=== PATIENT | male | born 1960 | race Caucasian/White ===

== ENCOUNTER 2018-03-10 10:43 | Inpatient (IN) | payer OTHER ==
[2018-03-10 10:55] VITALS: BMI 24.6
--- NOTE | 2018-03-10 11:18 | HP ---
COWS - Scale Resting Pulse: 0= [place] 80 or Below Sweatin=Flushed/Facial Moisture Restless Observation: 3= Extraneous Movement Pupil Size: 2= Moderately Dilated Bone or Joint Aches: 2= Severe Diffuse Aches Runny Nose/ Eye Tearin= Runny Nose/Eyes GI Upset > 30mins: 3= Vomiting/Diarrhea Tremor Observation: 2= Slight Tremor Visible Yawning Observation: 1= 1-2x During Session Anxiety or Irritability: 2=Irritable/Anxious Goose Flesh Skin: 0=Smooth Skin COWS Score: 19 Admission ROS S - HPI Chief Complaint: i need help to stop using heroin and cocaine Allergies/Adverse Reactions: Allergies Allergy/AdvReac Type Severity Reaction Status Date / Time No Known Allergies Allergy Verified 03/10/18 11:07 History of Present Illness: this 58 years old male with heroin and cocaine dependence,seeking detox, withdrawal symptom,last detox 01/27 [facility] not completed weight loss hiv since 1990,no medications,no compliance weight loss nicotine dependence longest period of sobriety 10 years - Ebola screening Have you traveled outside of the country in the last 21 days: No Have you been sick,other than usual withdrawal symptoms: No - Review of Systems Constitutional: Chills, Diaphoresis, Loss of Appetite, Malaise, Night Sweats, Changes in sleep, Weakness, Unintentional Wgt. Loss EENT: reports: Tearing, Nose Congestion Respiratory: reports: No Symptoms reported Cardiac: reports: No Symptoms Reported GI: reports: Diarrhea, Nausea, Vomiting, Abdominal cramping : reports: No Symptoms Reported Musculoskeletal: reports: Back Pain, Joint Pain, Muscle Pain, Joint Stiffness Integumentary: reports: Dryness Neuro: reports: Headache, Tremors Endocrine: reports: No Symptoms Reported Hematology: reports: No Symptoms Reported (hiv) Psychiatric: reports: No Sypmtoms Reported, Judgement Intact, Mood/Affect Appropiate, Orientated x3 Patient History - Patient Medical History Hx Anemia: No Hx Asthma: No Hx Chronic Obstructive Pulmonary Disease (COPD): No Hx Cancer: No Hx Cardiac Disorders: No Hx Congestive Heart Failure: No Hx Hypertension: No Hx Hypercholesterolemia: No Hx Pacemaker: No HX Cerebrovascular Accident: No Hx Seizures: No Hx Dementia: No Hx Diabetes: No Hx Gastrointestinal Disorders: No Hx Liver Disease: No Hx Genitourinary Disorders: No Hx Sexually Transmitted Disorders: No Hx Renal Disease (ESRD): No Hx Thyroid Disease: No Hx Human Immunodeficiency Virus (HIV): Yes (since 1990 non compliance no medication) Hx Hepatitis C: No Hx Depression: No Hx Suicide Attempt: No Hx Bipolar Disorder: No Hx Schizophrenia: No - Patient Surgical History Past Surgical History: Yes - PPD History Previous Implant?: Yes Documented Results: Positive w/o proof Implanted On Prior [facility] Admission?: No PPD to be Administered?: No - Smoking Cessation Smoking history: Current every day smoker Have you smoked in the past 12 months: Yes Aproximately how many cigarettes per day: 20 Cigars Per Day: 0 Hx Chewing Tobacco Use: No Initiated information on smoking cessation: Yes 'Breaking Loose' booklet given: 03/10/18 - Substance & Tx. History Hx Alcohol Use: No Hx Substance Use: No Substance Use Type: Cocaine, Heroin Hx Substance Use Treatment: Yes ([facility] 01/27 not completed) - Substances Abused Heroin Route: Injection Frequency: Daily Amount used: 10 bags Age of first use: 13 Date of Last Use: 03/09/18 Cocaine Route: Injection Frequency: 1-2 times per week Amount used: 1 bag Age of first use: 13 Date of Last Use: 03/08/18 Family Disease History - Family Disease History Family History: Denies Admission Physical Exam S - Vital Signs Vital Signs: Vital Signs - 24 hr 03/10/18 10:47 Temperature 97.6 F Pulse Rate 51 L Respiratory 17 Rate Blood Pressure 104/69 - Physical General Appearance: Yes: Moderate Distress, Tremorous, Irritable, Sweating, Anxious HEENTM: Yes: Normal ENT Inspection, DONTAE, Pharynx Normal Respiratory: Yes: Lungs Clear, Normal Breath Sounds, No Respiratory Distress Neck: Yes: Supple, Trachea in good position, Thyroid tenderness Breast: Yes: Within Normal Limits Cardiology: Yes: Within Normal Limits, Regular Rhythm, Regular Rate, S1, S2 Abdominal: Yes: Within Normal Limits, Normal Bowel Sounds, Non Tender, Soft Genitourinary: Yes: Within Normal Limits Back: Yes: Muscle Spasm Musculoskeletal: Yes: full range of Motion, Back pain, Muscle Pain Extremities: Yes: Normal Range of Motion, Tremors Neurological: Yes: water manager II-XII NML intact, Fully Oriented, Alert, Motor Strength 5/5 Integumentary: Yes: Dry, Track Chandra Lymphatic: Yes: Within Normal Limits - Diagnostic (1) Opioid dependence with withdrawal Current Visit: Yes Status: Acute (2) Cocaine dependence Current Visit: Yes Status: Acute (3) HIV (human immunodeficiency virus infection) Current Visit: Yes Status: Acute (4) Weight loss Current Visit: Yes Status: Acute (5) Nicotine dependence Current Visit: Yes Status: Acute (6) IVDU (intravenous drug user) Current Visit: Yes Status: Acute Cleared for Admission S - Detox or Rehab [facility] Level of Care: Medically Managed Detox Regimen/Protocol: Methadone [facility] Breath Alcohol Content Breath Alcohol Content: 0 Urine Drug Screen - Results Drug Screen Negative: No Urine Drug Screen Results: HUGH-Cocaine, OPI-Opiates
[2018-03-10] MEDS ORDERED: MAGNESIUM HYDROX 2400MG/30ML ORAL SUSPENSION 30 ML CUP PO PRN (11:28)
[2018-03-10] MEDS ORDERED: hydrOXYzine PAMOATE 25 MG CAPSULE (FP) PO PRN (11:28)
[2018-03-10] MEDS ORDERED: MAG HYDROX/AL HYDROX/SIMETH 30 ML UNIT-DOSE CUP PO PRN (11:28)
[2018-03-10] MEDS ORDERED: MAGNESIUM CITRATE 300 ML BOTTLE PO PRN (11:28)
[2018-03-10] MEDS ORDERED: guaiFENesin/D-METHORPHAN HB 10 ML UNIT-DOSE CUPS PO PRN (11:28)
[2018-03-10] MEDS ORDERED: LOPERAMIDE HCL 2 MG CAPSULE PO PRN (11:28)
[2018-03-10] MEDS ORDERED: ACETAMINOPHEN 325 MG TABLET (FP) PO PRN (11:28)
[2018-03-10] MEDS ORDERED: P-EPHED 60MG/TRIPROLIDI 2.5MG TABLET PO PRN (11:28)
[2018-03-10] MEDS ORDERED: MENTHOL/PHENOL 1 EACH UD MM PRN (11:28)
[2018-03-10] MEDS ORDERED: CYCLOBENZAPRINE HCL 10 MG TABLET (FP) PO PRN (11:32)
[2018-03-10] MEDS ORDERED: METHADONE HCL 10 MG TABLET (FOR DETOX USE ONLY) PO ONE ×2 (12:00→23:00)
[2018-03-10] MEDS: cloNIDine HCL 0.1 MG TABLET PO SCH ×2 (13:35→22:38)
[2018-03-10] MEDS: diazePAM 5 MG TABLET PO PRN (13:35)
[2018-03-10] MEDS: NICOTINE 21 MG/24 HOURS TOPICAL PATCH TD SCH (13:37)
--- NOTE | 2018-03-10 15:03 | EKG ---
Test Reason : Blood Pressure : / mmHG Vent. Rate : 056 BPM Atrial Rate : 056 BPM P-R Int : 168 ms QRS Dur : 102 ms QT Int : 454 ms P-R-T Axes : 017 079 047 degrees QTc Int : 438 ms SINUS BRADYCARDIA OTHERWISE NORMAL ECG NO PREVIOUS ECGS AVAILABLE Confirmed by SRAVANI GOMES, CLARITA ([id number]) on 03/10/2018 3:03:07 PM Referred By: Confirmed By:CLARITA LASSITER MD
[2018-03-10 17:44] LABS: URINE APPEARANCE SLCLOUDY; URINE BILIRUBIN NEGATIVE (<2.0 mg/dL); URINE COLOR AMBER; URINE GLUCOSE (UA) NEGATIVE (NEGATIVE); URINE KETONE TRACE (NEGATIVE); URINE LEUK ESTERASE NEGATIVE (NEGATIVE); URINE NITRITE NEGATIVE (NEGATIVE); URINE UROBILINOGEN 4.0 E.U/dl mg/dL (0.2-1.0)
[2018-03-10 17:58] LABS: URINE PROTEIN 1+ (NEGATIVE)
[2018-03-10 18:21] LABS: URINE MUCUS MODERATE
[2018-03-10] MEDS ORDERED: MELATONIN 5 MG TABLETS PO PRN (22:00)
[2018-03-10] MEDS: THIAMINE HCL 100 MG TABLET (FP) PO SCH (22:38)
[2018-03-11] MEDS: diazePAM 5 MG TABLET PO PRN ×4 (02:13→22:12)
[2018-03-11] MEDS: IBUPROFEN 400 MG TABLET (FP) PO PRN (02:14)
[2018-03-11] MEDS ORDERED: PNEUMOC 13-VAL CONJ-DIP CRM/PF 0.5 ML DISP.SYRIN IM ONE ×2 (06:00→12:00)
[2018-03-11] MEDS: CYCLOBENZAPRINE HCL 5 MG TABLET PO PRN ×2 (06:38→10:39)
[2018-03-11] MEDS: PRENATAL VITAMINS W/ FOLIC ACID TABLET (FP) PO SCH (09:41)
[2018-03-11] MEDS ORDERED: METHADONE HCL 10 MG TABLET (FOR DETOX USE ONLY) PO ONE (10:00)
[2018-03-11 10:20] LABS: HEMOGLOBIN 12.9 GM/dL (11.7-16.9); MCH 30.7 pg (25.7-33.7); MCHC 33.1 g/dl (32.0-35.9); MEAN CELL VOLUME 92.6 fl (80-96); MEAN PLT VOLUME 8.6 fl (7.5-11.1); PLATELET COUNT 273 K/MM3 (134-434); RBC 4.21 M/mm3 (4.00-5.60); RDW 16.5 % (11.9-15.9); WHITE BLOOD COUNT 3.6 K/mm3 (4.0-10.0)
[2018-03-11] MEDS: cloNIDine HCL 0.1 MG TABLET PO SCH ×2 (10:37→22:13)
[2018-03-11] MEDS: NICOTINE 21 MG/24 HOURS TOPICAL PATCH TD SCH ×2 (10:49→14:05)
[2018-03-11 12:32] LABS: CHLORIDE 103 mmol/L (98-107); POTASSIUM 4.2 mmol/L (3.5-5.1); SODIUM 140 mmol/L (136-145)
[2018-03-11 13:00] LABS: ALBUMIN 3.4 g/dl (3.4-5.0); ALK PHOS 93 U/L (45-117); ANION GAP 10 MMOL/L (8-16); BILIRUBIN,TOTAL 0.5 mg/dL (0.2-1.0); BLOOD UREA NITROGEN 15 mg/dL (7-18); CALCIUM 9.1 mg/dL (8.5-10.1); CO2 27 mmol/L (21-32); CREATININE 0.9 mg/dL (0.7-1.3); GLUCOSE,RANDOM 96 mg/dL (74-106); SGOT/AST 42 U/L (15-37); SGPT/ALT 32 U/L (12-78); TOT PROT 8.8 g/dl (6.4-8.2)
--- NOTE | 2018-03-11 13:15 | PN ---
BHS COWS - Scale Resting Pulse: 0= [place] 80 or Below Sweatin= Chills/Flushing Restless Observation: 3= Extraneous Movement Pupil Size: 1= Pupils >than Normal Bone or Joint Aches: 2= Severe Diffuse Aches Runny Nose/ Eye Tearin= Runny Nose/Eyes GI Upset > 30mins: 2= Nausea/Diarrhea Tremor Observation of Outstretched Hands: 2= Slight Tremor Visible Yawning Observation: 1= 1-2x During Session Anxiety or Irritability: 2=Irritable/Anxious Goose Flesh Skin: 0=Smooth Skin COWS Score: 16 S Progress Note (SOAP) Subjective: alert,irritable,anxious,interrupted sleep,pain in the body and back,tremor, sweating Objective: 03/11/18 13:12 Vital Signs Temperature 96.6 F L 03/11/18 09:24 Pulse Rate 54 L 03/11/18 09:24 Respiratory Rate 20 03/11/18 09:24 Blood Pressure 101/59 03/11/18 09:24 O2 Sat by Pulse Oximetry (%) 03/11/18 13:13 ekg sinus bradycardia 56/min qt/qtc 454/438 no chest pain,no sob,no dizziness Laboratory Last Values WBC 3.6 K/mm3 (4.0-10.0) L 03/11/18 06:20 RBC 4.21 M/mm3 (4.00-5.60) 03/11/18 06:20 Hgb 12.9 GM/dL (11.7-16.9) 03/11/18 06:20 Hct 39.0 % (35.4-49) 03/11/18 06:20 MCV 92.6 fl (80-96) 03/11/18 06:20 MCH 30.7 pg (25.7-33.7) 03/11/18 06:20 MCHC 33.1 g/dl (32.0-35.9) 03/11/18 06:20 RDW 16.5 % (11.9-15.9) H 03/11/18 06:20 Plt Count 273 K/MM3 (134-434) 03/11/18 06:20 MPV 8.6 fl (7.5-11.1) 03/11/18 06:20 Sodium 140 mmol/L (136-145) 03/11/18 06:20 Potassium 4.2 mmol/L (3.5-5.1) 03/11/18 06:20 Chloride 103 mmol/L (98-107) 03/11/18 06:20 Carbon Dioxide 27 mmol/L (21-32) 03/11/18 06:20 Anion Gap 10 MMOL/L (8-16) 03/11/18 06:20 BUN 15 mg/dL (7-18) 03/11/18 06:20 Creatinine 0.9 mg/dL (0.7-1.3) 03/11/18 06:20 Creat Clearance w eGFR > 60 (>60) 03/11/18 06:20 Random Glucose 96 mg/dL (74-106) 03/11/18 06:20 Calcium 9.1 mg/dL (8.5-10.1) 03/11/18 06:20 Total Bilirubin 0.5 mg/dL (0.2-1.0) 03/11/18 06:20 AST 42 U/L (15-37) H 03/11/18 06:20 ALT 32 U/L (12-78) 03/11/18 06:20 Alkaline Phosphatase 93 U/L (45-117) 03/11/18 06:20 Total Protein 8.8 g/dl (6.4-8.2) H 03/11/18 06:20 Albumin 3.4 g/dl (3.4-5.0) 03/11/18 06:20 Urine Color Afshan 03/10/18 15:29 Urine Appearance Slcloudy 03/10/18 15:29 Urine pH 6.0 (5.0-8.0) 03/10/18 15:29 Ur Specific [place] 1.030 (1.001-1.035) 03/10/18 15:29 Urine Protein 1+ (NEGATIVE) H 03/10/18 15:29 Urine Glucose (UA) Negative (NEGATIVE) 03/10/18 15:29 Urine Ketones Trace (NEGATIVE) H 03/10/18 15:29 Urine Blood Negative (NEGATIVE) 03/10/18 15:29 Urine Nitrite Negative (NEGATIVE) 03/10/18 15:29 Urine Bilirubin Negative (<2.0 mg/dL) 03/10/18 15:29 Urine Urobilinogen 4.0 e.u/dl mg/dL (0.2-1.0) 03/10/18 15:29 Ur Leukocyte Esterase Negative (NEGATIVE) 03/10/18 15:29 Urine WBC (Auto) <1 /hpf (3-5) 03/10/18 15:29 Urine RBC (Auto) 26 /hpf (0-3) 03/10/18 15:29 Urine Mucus Moderate 03/10/18 15:29 RPR Titer Nonreactive (NONREACTIVE) 03/11/18 06:20 Assessment: 03/11/18 13:14 withdrawal symptom Plan: continue detox,repeat ua for microscopic hematuria
--- NOTE | 2018-03-11 17:51 | PN ---
[facility] Progress Note Note: Vital Signs Temperature 96.9 F L 03/11/18 13:21 Pulse Rate 72 03/11/18 13:21 Respiratory Rate 18 03/11/18 13:21 Blood Pressure 136/59 03/11/18 13:21 O2 Sat by Pulse Oximetry (%) Patient very agitated and belligerent, requested increase in schedule dose of 10 mg Librium. Patient made aware dose can not be adjusted and requested to speak with his counselor to attend another facility.
[2018-03-11] MEDS: VITAMINS A AND D TOPICAL OINTMENT 60 GM TUBE TP SCH (17:59)
[2018-03-11] MEDS ORDERED: hydrOXYzine PAMOATE 50 MG CAPSULE (FP) PO PRN (18:04)
[2018-03-11] MEDS: THIAMINE HCL 100 MG TABLET (FP) PO SCH (22:10)
[2018-03-12] MEDS: VITAMINS A AND D TOPICAL OINTMENT 60 GM TUBE TP SCH ×4 (03:53→16:59)
[2018-03-12] MEDS: diazePAM 5 MG TABLET PO PRN ×2 (05:11→22:34)
[2018-03-12] MEDS ORDERED: METHADONE HCL 5 MG TABLET (FOR DETOX USE ONLY) PO ONE (10:00)
[2018-03-12] MEDS: cloNIDine HCL 0.1 MG TABLET PO SCH (10:30)
[2018-03-12] MEDS: NICOTINE 21 MG/24 HOURS TOPICAL PATCH TD SCH (10:30)
[2018-03-12] MEDS: PRENATAL VITAMINS W/ FOLIC ACID TABLET (FP) PO SCH (10:30)
[2018-03-12] MEDS: IBUPROFEN 400 MG TABLET (FP) PO PRN (10:33)
[2018-03-12 11:27] LABS: URINE APPEARANCE CLOUDY; URINE BILIRUBIN NEGATIVE (<2.0 mg/dL); URINE COLOR YELLOW; URINE GLUCOSE (UA) NEGATIVE (NEGATIVE); URINE KETONE NEGATIVE (NEGATIVE); URINE LEUK ESTERASE NEGATIVE (NEGATIVE); URINE NITRITE NEGATIVE (NEGATIVE); URINE PROTEIN NEGATIVE (NEGATIVE); URINE UROBILINOGEN NEGATIVE mg/dL (0.2-1.0)
--- NOTE | 2018-03-12 12:00 | PN ---
BHS COWS - Scale Resting Pulse: 0= [place] 80 or Below Sweatin= Chills/Flushing Restless Observation: 3= Extraneous Movement Pupil Size: 1= Pupils >than Normal Bone or Joint Aches: 2= Severe Diffuse Aches Runny Nose/ Eye Tearin= Runny Nose/Eyes GI Upset > 30mins: 2= Nausea/Diarrhea Tremor Observation of Outstretched Hands: 2= Slight Tremor Visible Yawning Observation: 2= >3x During Session Anxiety or Irritability: 2=Irritable/Anxious Goose Flesh Skin: 0=Smooth Skin COWS Score: 17 BHS Progress Note (SOAP) Subjective: alert,irritable,anxious,interrupted sleep,pain in the body and back Objective: 03/12/18 11:58 Vital Signs Temperature 98.2 F 03/12/18 11:23 Pulse Rate 69 03/12/18 11:23 Respiratory Rate 18 03/12/18 11:23 Blood Pressure 129/81 03/12/18 11:23 O2 Sat by Pulse Oximetry (%) Laboratory Last Values WBC 3.6 K/mm3 (4.0-10.0) L 03/11/18 06:20 RBC 4.21 M/mm3 (4.00-5.60) 03/11/18 06:20 Hgb 12.9 GM/dL (11.7-16.9) 03/11/18 06:20 Hct 39.0 % (35.4-49) 03/11/18 06:20 MCV 92.6 fl (80-96) 03/11/18 06:20 MCH 30.7 pg (25.7-33.7) 03/11/18 06:20 MCHC 33.1 g/dl (32.0-35.9) 03/11/18 06:20 RDW 16.5 % (11.9-15.9) H 03/11/18 06:20 Plt Count 273 K/MM3 (134-434) 03/11/18 06:20 MPV 8.6 fl (7.5-11.1) 03/11/18 06:20 Sodium 140 mmol/L (136-145) 03/11/18 06:20 Potassium 4.2 mmol/L (3.5-5.1) 03/11/18 06:20 Chloride 103 mmol/L (98-107) 03/11/18 06:20 Carbon Dioxide 27 mmol/L (21-32) 03/11/18 06:20 Anion Gap 10 MMOL/L (8-16) 03/11/18 06:20 BUN 15 mg/dL (7-18) 03/11/18 06:20 Creatinine 0.9 mg/dL (0.7-1.3) 03/11/18 06:20 Creat Clearance w eGFR > 60 (>60) 03/11/18 06:20 Random Glucose 96 mg/dL (74-106) 03/11/18 06:20 Calcium 9.1 mg/dL (8.5-10.1) 03/11/18 06:20 Total Bilirubin 0.5 mg/dL (0.2-1.0) 03/11/18 06:20 AST 42 U/L (15-37) H 03/11/18 06:20 ALT 32 U/L (12-78) 03/11/18 06:20 Alkaline Phosphatase 93 U/L (45-117) 03/11/18 06:20 Total Protein 8.8 g/dl (6.4-8.2) H 03/11/18 06:20 Albumin 3.4 g/dl (3.4-5.0) 03/11/18 06:20 Urine Color Yellow 03/12/18 07:30 Urine Appearance Cloudy 03/12/18 07:30 Urine pH 5.0 (5.0-8.0) 03/12/18 07:30 Ur Specific [place] 1.018 (1.001-1.035) 03/12/18 07:30 Urine Protein Negative (NEGATIVE) 03/12/18 07:30 Urine Glucose (UA) Negative (NEGATIVE) 03/12/18 07:30 Urine Ketones Negative (NEGATIVE) 03/12/18 07:30 Urine Blood Negative (NEGATIVE) 03/12/18 07:30 Urine Nitrite Negative (NEGATIVE) 03/12/18 07:30 Urine Bilirubin Negative (<2.0 mg/dL) 03/12/18 07:30 Urine Urobilinogen Negative mg/dL (0.2-1.0) 03/12/18 07:30 Ur Leukocyte Esterase Negative (NEGATIVE) 03/12/18 07:30 Urine WBC (Auto) <1 /hpf (3-5) 03/10/18 15:29 Urine RBC (Auto) 26 /hpf (0-3) 03/10/18 15:29 Urine Mucus Moderate 03/10/18 15:29 RPR Titer Nonreactive (NONREACTIVE) 03/11/18 06:20 03/12/18 11:59 Laboratory Results - last 24 hr 03/11/18 03/11/18 03/12/18 06:20 06:20 07:30 Sodium 140 Potassium 4.2 Chloride 103 Carbon Dioxide 27 Anion Gap 10 BUN 15 Creatinine 0.9 Creat Clearance w eGFR > 60 Random Glucose 96 Calcium 9.1 Total Bilirubin 0.5 AST 42 H ALT 32 Alkaline Phosphatase 93 Total Protein 8.8 H Albumin 3.4 Urine Color Yellow Urine Appearance Cloudy Urine pH 5.0 Ur Specific [place] 1.018 Urine Protein Negative Urine Glucose (UA) Negative Urine Ketones Negative Urine Blood Negative Urine Nitrite Negative Urine Bilirubin Negative Urine Urobilinogen Negative Ur Leukocyte Esterase Negative RPR Titer Nonreactive Assessment: 03/12/18 12:00 withdrawal symptom Plan: continue detox
--- NOTE | 2018-03-12 17:56 | PN ---
BHS Progress Note Note: Patients blood pressure low. Currently 80/35 (L) and 80/40 (R). Ambulating. Denies vertigo or SOB. Plan: Will hold current librium dose. Increase water intake.
[2018-03-12] MEDS: THIAMINE HCL 100 MG TABLET (FP) PO SCH (22:34)
[2018-03-13] MEDS: VITAMINS A AND D TOPICAL OINTMENT 60 GM TUBE TP SCH (06:04)
[2018-03-13 06:54] VITALS: BP 119/66; PULSE 56; TEMP 97.9
--- NOTE | 2018-03-13 07:02 | PN ---
BHS Progress Note Note: informed client eloped off unit.
--- NOTE | 2018-03-13 07:32 | DS ---
[facility] Discharge Summary Admission Date: 03/10/18 Discharge Date: 03/13/18 - History Present History: Cocaine Dependence, Opioid Dependence Pertinent Past History: HIV IVDU NICOTINE DEPENDENCE WEIGHT LOSS - Physical Exam Results Vital Signs: Vital Signs Temperature 97.9 F 03/13/18 06:53 Pulse Rate 56 L 03/13/18 06:53 Respiratory Rate 03/13/18 06:53 Blood Pressure 119/66 03/13/18 06:53 O2 Sat by Pulse Oximetry (%) Pertinent Admission Physical Exam Findings: WITHDRAWAL SX'S Laboratory Tests 03/10/18 03/11/18 03/11/18 15:29 06:20 06:20 WBC 3.6 L RBC 4.21 Hgb 12.9 Hct 39.0 MCV 92.6 MCH 30.7 MCHC 33.1 RDW 16.5 H Plt Count 273 MPV 8.6 Sodium 140 Potassium 4.2 Chloride 103 Carbon Dioxide 27 Anion Gap 10 BUN 15 Creatinine 0.9 Creat Clearance w eGFR > 60 Random Glucose 96 Calcium 9.1 Total Bilirubin 0.5 AST 42 H ALT 32 Alkaline Phosphatase 93 Total Protein 8.8 H Albumin 3.4 Urine Color Afshan Urine Appearance Slcloudy Urine pH 6.0 Ur Specific [place] 1.030 Urine Protein 1+ H Urine Glucose (UA) Negative Urine Ketones Trace H Urine Blood Negative Urine Nitrite Negative Urine Bilirubin Negative Urine Urobilinogen 4.0 e.u/dl Ur Leukocyte Esterase Negative Urine WBC (Auto) <1 Urine RBC (Auto) 26 Urine Mucus Moderate RPR Titer 03/11/18 03/12/18 06:20 07:30 WBC RBC Hgb Hct MCV MCH MCHC RDW Plt Count MPV Sodium Potassium Chloride Carbon Dioxide Anion Gap BUN Creatinine Creat Clearance w eGFR Random Glucose Calcium Total Bilirubin AST ALT Alkaline Phosphatase Total Protein Albumin Urine Color Yellow Urine Appearance Cloudy Urine pH 5.0 Ur Specific [place] 1.018 Urine Protein Negative Urine Glucose (UA) Negative Urine Ketones Negative Urine Blood Negative Urine Nitrite Negative Urine Bilirubin Negative Urine Urobilinogen Negative Ur Leukocyte Esterase Negative Urine WBC (Auto) Urine RBC (Auto) Urine Mucus RPR Titer Nonreactive - Treatment Hospital Course: Discharged Condition Good Patient has Accepted a Rehab Referral to: DECLINED - Medication Discharge Medications: Ambulatory Orders NK [No Known Home Medication] 03/10/18 - Diagnosis (1) Cocaine dependence Current Visit: Yes Status: Chronic Qualifiers: Substance use status: uncomplicated Qualified Code(s): F14.20 - Cocaine dependence, uncomplicated (2) HIV (human immunodeficiency virus infection) Current Visit: Yes Status: Chronic (3) IVDU (intravenous drug user) Current Visit: Yes Status: Chronic (4) Nicotine dependence Current Visit: Yes Status: Chronic Qualifiers: Nicotine product type: cigarettes Substance use status: uncomplicated Qualified Code(s): F17.210 - Nicotine dependence, cigarettes, uncomplicated (5) Opioid dependence with withdrawal Current Visit: Yes Status: Acute (6) Weight loss Current Visit: Yes Status: Chronic - AMA Did Patient Leave Against Medical Advice: Yes (LEFT UNIT AMA. DECLINED TO ALL REFERRALS)
[2018-03-13] MEDS ORDERED: METHADONE HCL 5 MG TABLET (FOR DETOX USE ONLY) PO ONE (10:00)
[2018-03-14] MEDS ORDERED: METHADONE HCL 10 MG TABLET (FOR DETOX USE ONLY) PO ONE (10:00)
[2018-03-15] MEDS ORDERED: METHADONE HCL 5 MG TABLET (FOR DETOX USE ONLY) PO ONE (06:00)
== END 2018-03-13 06:45 | disposition left against medical advice (07) | DRG 770 ==
LOC: YASAS 10:43 → Y6N 11:29
PROC: HZ2ZZZZ Detoxification Services for Substance Abuse Treatment (ICD-10-PCS; principal; 2018-03-10)
DX: F11.23 Opioid dependence with withdrawal (principal); F14.20 Cocaine dependence, uncomplicated; F17.210 Nicotine dependence, cigarettes, uncomplicated; Z21 Asymptomatic human immunodeficiency virus [HIV] infection status; R31.29 Other microscopic hematuria; R63.4 Abnormal weight loss; Z68.24 Body mass index [BMI] 24.0-24.9, adult
CPT/HCPCS: 36415; 71045-TC-FY; 80053; 81003; 81015; 85027; 86593; 93005; 93010; J0735

== ENCOUNTER 2018-12-13 10:50 | Inpatient (IN) | payer OTHER | END 2018-12-16 19:37 | disposition other institution (70) | LOC: YASAS 10:50 → Y3N 15:04 ==

== ENCOUNTER 2018-12-16 20:03 | Inpatient (IN) | payer OTHER | END 2018-12-17 11:20 | disposition left against medical advice (07) | LOC: YASAS 20:03 → Y5N 20:04 ==

== ENCOUNTER 2019-04-01 11:54 | Inpatient (IN) | payer OTHER ==
[2019-04-01 16:11] VITALS: BMI 28.3
--- NOTE | 2019-04-01 16:49 | HP ---
CIWA Score Nausea/Vomitin-No Nausea/No Vomiting Muscle Tremors: None Anxiety: 4-Mod. Anxious/Guarded Agitation: 4-Moderately Restless Paroxysmal Sweats: 3 Orientation: 2-Disoriented Date<2 days Tacttile Disturbances: 0-None Auditory Disturbances: 0-None Visual Disturbances: 0-None Headache: 0-None Present CIWA-Ar Total Score: 13 - Admission Criteria OAS Guidelines: Admission for Medically Managed Detox: Requires at least one of the followin. CIWA greater than 12 2. Seizures within the past 24 hours 3. Delirium tremens within the past 24 hours 4. Hallucinations within the past 24 hours 5. Acute intervention needed for co occurring medical disorder 6. Acute intervention needed for co occurring psychiatric disorder 7. Severe withdrawal that cannot be handled at a lower level of care (continued vomiting, continued diarrhea, abnormal vital signs) requiring intravenous medication and/or fluids 8. Patient presents the following: CIWA greater than 12 Admission Criteria Met: Admission criteria met Admission ROS [facility] Chief Complaint: C/O WITHDRAWAL SX'S Allergies/Adverse Reactions: Allergies Allergy/AdvReac Type Severity Reaction Status Date / Time No Known Allergies Allergy Verified 04/01/19 16:00 History of Present Illness: HERE FOR ALCOHOL DETOX. HE IS SELF REFERRED HE IS KNOWN TO THIS PROGRAM . LAST ADMIT 12/2018. REPORTS DAILY ALCOHOL INTAKE. LAST DRANK 2 DAYS AGO BECAUSE " I DONT HAVE ANY MONEY". PRESENTS TODAY C/O WORSENING WITHDRAWAL SX'S. SEEKING DETOX. 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 DENIES CLEAN TIME IN THE PAST YEAR. HERE IS ON MMTP AT [facility] WITH REPORTED DOSE OF 60 MG. MEDICATED TODAY. HE ALSO ABUSES COCAINE AND HEROIN STILL. IVDU DENIES HX/O OVER DOSE BLACK OUTS, [facility]. LIVES ALONE, UNEMPLOYED, DENIES LEGALS Exam Limitations: No Limitations - Ebola screening Have you traveled outside of the country in the last 21 days: No Have you had contact with anyone from an Ebola affected area: No Do you have a fever: No - Review of Systems Constitutional: Chills, Night Sweats EENT: reports: Dental Problems (MISSING TEETH) Respiratory: reports: Shortness of Breath (INTERMITTENT WITH EXCERCISE) Cardiac: reports: No Symptoms Reported GI: reports: No Symptoms Reported : reports: No Symptoms Reported Musculoskeletal: reports: Back Pain (CHRONIC) Integumentary: reports: No Symptoms Reported Neuro: reports: No Symptoms reported Endocrine: reports: No Symptoms Reported Hematology: reports: No Symptoms Reported Psychiatric: reports: Orientated x3, Anxious Other Systems: Reviewed and Negative Patient History - Patient Medical History Hx Anemia: No Hx Asthma: No Hx Chronic Obstructive Pulmonary Disease (COPD): No Hx Cancer: No Hx Cardiac Disorders: No Hx Congestive Heart Failure: No Hx Hypertension: No Hx Hypercholesterolemia: No Hx Pacemaker: No HX Cerebrovascular Accident: No Hx Seizures: No Hx Dementia: No Hx Diabetes: No Hx Gastrointestinal Disorders: No Hx Liver Disease: No Hx Genitourinary Disorders: No Hx Sexually Transmitted Disorders: No Hx Renal Disease (ESRD): No Hx Thyroid Disease: No Hx Human Immunodeficiency Virus (HIV): Yes ( TRANSMITTED VIA IV DRUG USE) Hx Hepatitis C: No Hx Depression: No Hx Suicide Attempt: No Hx Bipolar Disorder: No Hx Schizophrenia: No - Patient Surgical History Past Surgical History: No - PPD History Previous Implant?: Yes Documented Results: Positive w/o proof Implanted On Prior [facility] Admission?: No Date: 12/13/18 Results: /08/19 PPD to be Administered?: No - Smoking Cessation Smoking history: Current every day smoker Have you smoked in the past 12 months: Yes Aproximately how many cigarettes per day: 20 Cigars Per Day: 0 Hx Chewing Tobacco Use: No Initiated information on smoking cessation: Yes 'Breaking Loose' booklet given: 04/01/19 - Substance & Tx. History Hx Alcohol Use: Yes Hx Substance Use: Yes Substance Use Type: Alcohol, Cocaine, Heroin, Prescribed (MMTP) Hx Substance Use Treatment: Yes ([facility]) - Substances abused Alprazolam (Xanax) Substance route: Oral Frequency: Daily Amount used: 4mgs Age of first use: 58 Date of last use: 03/30/19 Benzodiazepine (Klonopin) Substance route: Oral Frequency: Daily Amount used: 2/2MG Age of first use: 58 Date of last use: 03/30/19 Diazepam Substance route: Oral Frequency: Daily Amount used: 1/2MG Age of first use: 58 Date of last use: 12/11/18 Heroin Substance route: Injection Frequency: Daily Amount used: 1 BUNDLE Age of first use: 13 Date of last use: 03/30/19 Alcohol Substance route: Oral Frequency: Daily Amount used: 1 PINT Age of first use: 8 Date of last use: 03/30/19 Admission Physical Exam [facility] - Vital Signs Vital Signs: Vital Signs - 24 hr 04/01/19 15:41 Temperature 97.3 F L Pulse Rate 53 L Respiratory 14 Rate Blood Pressure 98/65 - Physical General Appearance: Yes: Anxious HEENTM: Yes: EOMI, Normocephalic, Normal Voice, DONTAE, Pharynx Normal, Other ( MISSING TEETH) Respiratory: Yes: Chest Non-Tender, Lungs Clear, Normal Breath Sounds, No Respiratory Distress, No Accessory Muscle Use Neck: Yes: No masses,lesions,Nodules, Supple, Trachea in good position Breast: Yes: Breast Exam Deferred Cardiology: Yes: Regular Rhythm, Regular Rate, S1, S2 Abdominal: Yes: Normal Bowel Sounds, Non Tender, Soft, Hernia (UMBILICAL) Genitourinary: Yes: Within Normal Limits (NO C/O) Back: Yes: Normal Inspection Musculoskeletal: Yes: full range of Motion, Gait Steady Extremities: Yes: Normal Range of Motion, Non-Tender, Tremors (FELT) Neurological: Yes: Fully Oriented, Alert, Motor Strength 5/5 Integumentary: Yes: Cold, Clammy, Other (ONYCHOMYCOSIS OF TOE NAIL-) Lymphatic: Yes: Within Normal Limits - Diagnostic (1) Alcohol dependence with uncomplicated withdrawal Current Visit: Yes Status: Acute (2) Uncomplicated opioid dependence Current Visit: Yes Status: Acute (3) Cocaine dependence Current Visit: No Status: Chronic Qualifiers: Substance use status: uncomplicated (4) HIV (human immunodeficiency virus infection) Current Visit: No Status: Chronic Qualifiers: (5) IVDU (intravenous drug user) Current Visit: No Status: Chronic (6) Methadone maintenance therapy patient Current Visit: No Status: Chronic (7) Nicotine dependence Current Visit: No Status: Chronic Qualifiers: Nicotine product type: cigarettes Substance use status: uncomplicated Qualified Code(s): F17.210 - Nicotine dependence, cigarettes, uncomplicated (8) Positive PPD Current Visit: No Status: Chronic Cleared for Admission [facility] - Detox or Rehab [facility] Level of Care: Medically Managed Detox Regimen/Protocol: Librium Claeared for Rehab Admission: No Breathalyzer - Breathalyzer Breathalyzer: 0 Urine Drug Screen - Test Device Lot number: [id number] Expiration date: 12/10/20 - Control Is test valid?: Yes - Results Drug screen NEGATIVE: No Urine drug screen results: HUGH-Cocaine, MOP-Opiates, MTD-Methadone Inpatient Rehab Admission - Rehab Decision to Admit Inpatient rehab admission?: No
[2019-04-01] MEDS ORDERED: MENTHOL/PHENOL 1 EACH UD MM PRN (17:01)
[2019-04-01] MEDS ORDERED: ACETAMINOPHEN 325 MG TABLET (FP) PO PRN ×2 (17:01)
[2019-04-01] MEDS ORDERED: MAGNESIUM CITRATE 300 ML BOTTLE PO PRN (17:01)
[2019-04-01] MEDS ORDERED: NICOTINE POLACRILEX 2 MG GUM BUC PRN (17:01)
[2019-04-01] MEDS ORDERED: ONDANSETRON *ODT* 4 MG TABLET SL PRN (17:01)
[2019-04-01] MEDS ORDERED: P-EPHED 60MG/TRIPROLIDI 2.5MG TABLET PO PRN (17:01)
[2019-04-01] MEDS ORDERED: MAG HYDROX/AL HYDROX/SIMETH 30 ML UNIT-DOSE CUP PO PRN (17:01)
[2019-04-01] MEDS ORDERED: chlordiazePOXIDE HCL 10 MG CAPSULE PO PRN (17:01)
[2019-04-01] MEDS ORDERED: METHOCARBAMOL 500 MG TABLET PO PRN (17:01)
[2019-04-01] MEDS ORDERED: guaiFENesin 200 MG/10 ML 10 ML UNIT-DOSE CUPS PO PRN (17:01)
[2019-04-01] MEDS ORDERED: MAGNESIUM HYDROX 2400MG/30ML ORAL SUSPENSION 30 ML CUP PO PRN (17:01)
[2019-04-01] MEDS ORDERED: hydrOXYzine PAMOATE 25 MG CAPSULE (FP) PO PRN (17:01)
[2019-04-01] MEDS ORDERED: BISMUTH SUBSALICYLATE 524 MG/30 ML UD PO PRN (17:01)
[2019-04-01] MEDS ORDERED: DICYCLOMINE HCL 10 MG CAPSULE PO PRN (17:01)
[2019-04-01] MEDS: IBUPROFEN 400 MG TABLET (FP) PO PRN (19:53)
[2019-04-01] MEDS: THIAMINE HCL 100 MG TABLET (FP) PO SCH (22:09)
[2019-04-01] MEDS: MELATONIN 5 MG TABLETS PO PRN (22:09)
[2019-04-01] MEDS: chlordiazePOXIDE HCL 25 MG CAPSULE PO SCH (22:10)
[2019-04-02] MEDS: chlordiazePOXIDE HCL 25 MG CAPSULE PO SCH ×3 (06:14→23:14)
[2019-04-02] MEDS ORDERED: EFAVIRENZ 200 MG CAPSULE PO SCH (10:00)
[2019-04-02] MEDS ORDERED: EMTRICITABINE 200MG/TENOFOVIR 300MG PO SCH (10:00)
[2019-04-02] MEDS ORDERED: METHADONE HCL 10 MG TABLET PO SCH (10:30)
[2019-04-02] MEDS ORDERED: METHADONE HCL 40 MG DISPERSABLE TABLET ONE (10:36)
[2019-04-02] MEDS ORDERED: METHADONE HCL 10 MG TABLET ONE (10:36)
[2019-04-02] MEDS: EMTRICITABINE 200MG/TENOFOVIR 300MG PO SCH (10:37)
[2019-04-02] MEDS: PRENATAL VITAMINS W/ FOLIC ACID TABLET (FP) PO SCH (10:37)
[2019-04-02] MEDS: EFAVIRENZ 600 MG TABLET PO SCH (10:37)
[2019-04-02] MEDS: METHADONE 40 MG, METHADONE 20 MG PO SCH (10:38)
[2019-04-02] MEDS: NICOTINE 21 MG/24 HOURS TOPICAL PATCH TD SCH (10:38)
--- NOTE | 2019-04-02 11:11 | PN ---
S CIWA - CIWA Score Nausea/Vomitin-No Nausea/No Vomiting Muscle Tremors: 2 Anxiety: 2 Agitation: 2 Paroxysmal Sweats: 3 Orientation: 0-Oriented Tacttile Disturbances: 0-None Auditory Disturbances: 0-None Visual Disturbances: 0-None Headache: 2-Mild CIWA-Ar Total Score: 11 BHS Progress Note (SOAP) Subjective: c/o sweats, anxiety, and headache. Objective: 04/02/19 11:10 Vital Signs 04/02/19 04/02/19 04/02/19 03:58 06:00 09:41 Temperature 98.4 F 98.2 F Pulse Rate 51 L 50 L Respiratory 16 18 17 Rate Blood Pressure 100/58 L 111/58 L Labs pending. Assessment: 04/02/19 11:10 AOX3, in no acute distress. Full ROM, ambulating in the unit. Withdrawal symptoms. Plan: continue detox.
[2019-04-02 11:19] LABS: HEMATOCRIT 33.4 % (35.4-49); MCH 29.3 pg (25.7-33.7); MCHC 33.1 g/dl (32.0-35.9); MEAN CELL VOLUME 88.5 fl (80-96); PLATELET COUNT 251 K/MM3 (134-434); RBC 3.77 M/mm3 (4.00-5.60); RDW 14.9 % (11.9-15.9)
[2019-04-02 11:35] LABS: ALBUMIN 3.2 g/dl (3.4-5.0); BILIRUBIN,TOTAL 0.2 mg/dL (0.2-1); CALCIUM 8.6 mg/dL (8.5-10.1); CREATININE 1.1 mg/dL (0.55-1.3); POTASSIUM 4.2 mmol/L (3.5-5.1); TOT PROT 7.8 g/dl (6.4-8.2)
[2019-04-02] MEDS: IBUPROFEN 400 MG TABLET (FP) PO PRN (15:50)
[2019-04-02] MEDS: THIAMINE HCL 100 MG TABLET (FP) PO SCH (23:14)
--- NOTE | 2019-04-02 23:41 | EKG ---
Test Reason : Blood Pressure : / mmHG Vent. Rate : 051 BPM Atrial Rate : 051 BPM P-R Int : 184 ms QRS Dur : 100 ms QT Int : 484 ms P-R-T Axes : 048 078 062 degrees QTc Int : 446 ms SINUS BRADYCARDIA OTHERWISE NORMAL ECG WHEN COMPARED WITH ECG OF 10-MAR-2018 13:11, NO SIGNIFICANT CHANGE WAS FOUND Confirmed by EVA GAYTAN MD ([id number]) on 04/02/2019 11:40:53 PM Referred By: Confirmed By:EVA GAYTAN MD
[2019-04-03] MEDS ORDERED: METHADONE HCL 10 MG TABLET ONE (03:21)
[2019-04-03] MEDS ORDERED: METHADONE HCL 40 MG DISPERSABLE TABLET ONE (03:21)
[2019-04-03] MEDS: chlordiazePOXIDE 5 MG CAPSULE PO SCH ×3 (05:30→22:17)
[2019-04-03] MEDS: METHADONE 40 MG, METHADONE 20 MG PO SCH (05:30)
[2019-04-03] MEDS: EMTRICITABINE 200MG/TENOFOVIR 300MG PO SCH (10:42)
[2019-04-03] MEDS: NICOTINE 21 MG/24 HOURS TOPICAL PATCH TD SCH (10:42)
[2019-04-03] MEDS: PRENATAL VITAMINS W/ FOLIC ACID TABLET (FP) PO SCH (10:43)
[2019-04-03] MEDS: EFAVIRENZ 600 MG TABLET PO SCH (10:43)
--- NOTE | 2019-04-03 16:02 | PN ---
S CIWA - CIWA Score Nausea/Vomitin-Mild Nausea/No Vomiting Muscle Tremors: 2 Anxiety: 2 Agitation: 2 Paroxysmal Sweats: 2 Orientation: 0-Oriented Tacttile Disturbances: 0-None Auditory Disturbances: 0-None Visual Disturbances: 0-None Headache: 0-None Present CIWA-Ar Total Score: 9 S Progress Note (SOAP) Subjective: Angry, stated medication is helping Objective: 04/03/19 15:59 Last Vital Signs Temp Pulse Resp BP Pulse Ox 97.7 F 79 18 90/60 04/03/19 13:41 04/03/19 13:41 04/03/19 13:41 04/03/19 13:41 Laboratory Tests 04/02/19 04/02/19 08:00 08:00 WBC 3.0 L RBC 3.77 L Hgb 11.0 L Hct 33.4 L MCV 88.5 MCH 29.3 MCHC 33.1 RDW 14.9 D Plt Count 251 MPV 8.0 Sodium 136 Potassium 4.2 Chloride 102 Carbon Dioxide 30 Anion Gap 4 L BUN 23.0 H Creatinine 1.1 Est GFR (CKD-EPI)AfAm 84.12 Est GFR (CKD-EPI)NonAf 72.58 Random Glucose 67 L Calcium 8.6 Total Bilirubin 0.2 AST 26 ALT 19 Alkaline Phosphatase 68 Total Protein 7.8 Albumin 3.2 L Labs reviewed: bun 23, mild anemia noted Assessment: 04/03/19 16:00 Withdrawal sxs Noted with azotemia and mild anemia Plan: Continue detox Azotemia: encouraged PO water hydration Mild anemia: most likely r/t alcoholism, encourage abstinence, follow up with PCP for management
[2019-04-03] MEDS: THIAMINE HCL 100 MG TABLET (FP) PO SCH (22:17)
[2019-04-03] MEDS: MELATONIN 5 MG TABLETS PO PRN ×2 (22:17)
[2019-04-04] MEDS ORDERED: chlordiazePOXIDE HCL 10 MG CAPSULE PO PRN
[2019-04-04] MEDS ORDERED: METHADONE HCL 40 MG DISPERSABLE TABLET ONE (04:46)
[2019-04-04] MEDS ORDERED: METHADONE HCL 10 MG TABLET ONE (04:46)
[2019-04-04] MEDS: METHADONE 40 MG, METHADONE 20 MG PO SCH (05:38)
[2019-04-04] MEDS: chlordiazePOXIDE HCL 10 MG CAPSULE PO SCH ×3 (05:40→21:14)
[2019-04-04] MEDS: PRENATAL VITAMINS W/ FOLIC ACID TABLET (FP) PO SCH (10:39)
[2019-04-04] MEDS: EMTRICITABINE 200MG/TENOFOVIR 300MG PO SCH (10:39)
[2019-04-04] MEDS: EFAVIRENZ 600 MG TABLET PO SCH (10:39)
[2019-04-04] MEDS: NICOTINE 21 MG/24 HOURS TOPICAL PATCH TD SCH (10:42)
--- NOTE | 2019-04-04 12:16 | PN ---
S CIWA - CIWA Score Nausea/Vomitin-Mild Nausea/No Vomiting Muscle Tremors: 1-None Visible, but [place] Anxiety: 2 Agitation: 2 Paroxysmal Sweats: No Perspiration Orientation: 0-Oriented Tacttile Disturbances: 0-None Auditory Disturbances: 0-None Visual Disturbances: 0-None Headache: 1-Very Mild CIWA-Ar Total Score: 7 S Progress Note (SOAP) Subjective: alert,irritable,anxious,interrupted sleep,pain in the body Objective: 04/04/19 12:15 Vital Signs Temperature 98.0 F 04/04/19 10:58 Pulse Rate 60 04/04/19 10:58 Respiratory Rate 18 04/04/19 10:58 Blood Pressure 98/50 L 04/04/19 10:58 O2 Sat by Pulse Oximetry (%) Assessment: 04/04/19 12:16 withdrawal symptom Plan: continue detox librium regimen,discharge in am
[2019-04-04] MEDS: THIAMINE HCL 100 MG TABLET (FP) PO SCH (21:14)
[2019-04-04] MEDS: MELATONIN 5 MG TABLETS PO PRN (21:33)
[2019-04-05] MEDS ORDERED: METHADONE HCL 10 MG TABLET ONE (04:46)
[2019-04-05] MEDS ORDERED: METHADONE HCL 40 MG DISPERSABLE TABLET ONE (04:46)
[2019-04-05] MEDS ORDERED: chlordiazePOXIDE HCL 10 MG CAPSULE PO ONE (05:00)
[2019-04-05] MEDS: METHADONE 40 MG, METHADONE 20 MG PO SCH (05:44)
[2019-04-05 06:39] VITALS: BP 107/61; PULSE 63; TEMP 97.2
--- NOTE | 2019-04-05 08:46 | DS ---
[facility] Detox Discharge Summary Admission Date: 04/01/19 Discharge Date: 04/05/19 - History Present History: Alcohol Dependence, Sedative Dependence, MMTP - Physical Exam Results Vital Signs: Vital Signs Temperature 97.2 F L 04/05/19 06:39 Pulse Rate 63 04/05/19 06:39 Respiratory Rate 18 04/05/19 06:39 Blood Pressure 107/61 04/05/19 06:39 O2 Sat by Pulse Oximetry (%) Pertinent Admission Physical Exam Findings: pt arrived in withdrawals Laboratory Tests 04/02/19 04/02/19 08:00 08:00 WBC 3.0 L RBC 3.77 L Hgb 11.0 L Hct 33.4 L MCV 88.5 MCH 29.3 MCHC 33.1 RDW 14.9 D Plt Count 251 MPV 8.0 Sodium 136 Potassium 4.2 Chloride 102 Carbon Dioxide 30 Anion Gap 4 L BUN 23.0 H Creatinine 1.1 Est GFR (CKD-EPI)AfAm 84.12 Est GFR (CKD-EPI)NonAf 72.58 Random Glucose 67 L Calcium 8.6 Total Bilirubin 0.2 AST 26 ALT 19 Alkaline Phosphatase 68 Total Protein 7.8 Albumin 3.2 L today pt is aaox3 ambulating no acute distress no s/s of withdrawals - Treatment Hospital Course: Detox Protocol Followed, Detoxed Safely, Responded well, Discharged Condition Good, Rehab Referral Accepted Patient has Accepted a Rehab Referral to: referred to [facility] - Medication Discharge Medications: Ambulatory Orders Efavirenz/Emtricit/Tenofovr Df [Atripla Tablet] 1 each PO DAILY 12/13/18 - Diagnosis (1) Alcohol dependence with uncomplicated withdrawal Current Visit: Yes Status: Chronic (2) Uncomplicated sedative, hypnotic or anxiolytic withdrawal Current Visit: Yes Status: Acute (3) Cocaine dependence Current Visit: Yes Status: Chronic Qualifiers: Substance use status: uncomplicated (4) HIV (human immunodeficiency virus infection) Current Visit: Yes Status: Chronic Qualifiers: HIV symptom status: unspecified (5) Methadone maintenance therapy patient Current Visit: Yes Status: Chronic (6) Nicotine dependence Current Visit: Yes Status: Chronic Qualifiers: Nicotine product type: cigarettes Substance use status: uncomplicated Qualified Code(s): F17.210 - Nicotine dependence, cigarettes, uncomplicated (7) 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
== END 2019-04-05 10:07 | disposition home or self-care (01) | DRG 773 ==
LOC: YASAS 11:54 → Y6N 17:29
PROVIDERS: ADMIT Surgery; ATTEND Surgery
PROC: HZ2ZZZZ Detoxification Services for Substance Abuse Treatment (ICD-10-PCS; principal; 2019-04-01)
DX: F10.230 Alcohol dependence with withdrawal, uncomplicated (principal); F11.20 Opioid dependence, uncomplicated; F13.230 Sedative, hypnotic or anxiolytic dependence with withdrawal, uncomplicated; F14.20 Cocaine dependence, uncomplicated; F17.210 Nicotine dependence, cigarettes, uncomplicated; Z21 Asymptomatic human immunodeficiency virus [HIV] infection status; R76.11 Nonspecific reaction to tuberculin skin test without active tuberculosis; D64.9 Anemia, unspecified; R79.89 Other specified abnormal findings of blood chemistry
CPT/HCPCS: 36415; 80053; 85027; 93005; 93010

== ENCOUNTER 2019-05-01 13:47 | Inpatient (IN) | payer OTHER ==
[2019-05-01 15:13] VITALS: BMI 27.4
--- NOTE | 2019-05-01 21:12 | HP ---
CIWA Score Nausea/Vomitin-Mild Nausea/No Vomiting Muscle Tremors: 4-Moderate,w/Arms Extend Anxiety: 4-Mod. Anxious/Guarded Agitation: 4-Moderately Restless Paroxysmal Sweats: 3 Orientation: 1-Uncertain about Date Tacttile Disturbances: 0-None Auditory Disturbances: 0-None Visual Disturbances: 0-None Headache: 0-None Present CIWA-Ar Total Score: 17 - Admission Criteria OASAS Guidelines: Admission for Medically Managed Detox: Requires at least one of the followin. CIWA greater than 12 2. Seizures within the past 24 hours 3. Delirium tremens within the past 24 hours 4. Hallucinations within the past 24 hours 5. Acute intervention needed for co occurring medical disorder 6. Acute intervention needed for co occurring psychiatric disorder 7. Severe withdrawal that cannot be handled at a lower level of care (continued vomiting, continued diarrhea, abnormal vital signs) requiring intravenous medication and/or fluids 8. Patient presents the following: CIWA greater than 12 Admission Criteria Met: Admission criteria met Admitting History and Physical - Smoking History Smoking history: Current every day smoker Have you smoked in the past 12 months: Yes Aproximately how many cigarettes per day: 20 - Alcohol/Substance Use Hx Alcohol Use: Yes Admission [facility] Chief Complaint: SEEKING DETOX Allergies/Adverse Reactions: Allergies Allergy/AdvReac Type Severity Reaction Status Date / Time No Known Allergies Allergy Verified 04/01/19 16:00 History of Present Illness: HERE FOR ALCOHOL DETOX. CLIENT IS SELF REFERRED KNOWN TO THE PROGRAM. LAST HERE A MONTH AGO. REPORTS IMMEDIATELY RELAPSING AFTER DC. HE PRESENTS WITH WITHDRAWAL SX'S. 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 HE IS ON MMTP AT [facility] FOR HIS OPIOID DEPENDENCE BUT CONTINUES TO ABUSE IT. REPORTED DOSE 80 MG DAily. LAST MEDICATED ON THE 30 OF APRIL. HE ALSO REPORTS KLONOPIN AND COCAINE ABUSE. UTOX NEGATIVE FOR BENZO. +IVDU, DENIES DRUG OVERDOSE, BLACK OUTS, SEIZURES. LONGEST CLEAN TIME 10 YEARS. DENIES ANY CLEAN TIME THIS PAST YEAR EXCEPT WHEN IN TXMENT. LIVES ALONE, WELFARE, DENIES LEGALS Exam Limitations: No Limitations - Ebola screening Have you traveled outside of the country in the last 21 days: No (N) Have you had contact with anyone from an Ebola affected area: No Do you have a fever: No - Review of Systems Constitutional: Chills, Night Sweats, Changes in sleep EENT: reports: Dental Problems (MISSING TEETH) Respiratory: reports: No Symptoms reported Cardiac: reports: No Symptoms Reported GI: reports: Nausea, Poor Fluid Intake : reports: No Symptoms Reported Musculoskeletal: reports: Back Pain (ACUTE) Integumentary: reports: No Symptoms Reported Neuro: reports: Other (BLACK OUTS) Endocrine: reports: No Symptoms Reported Hematology: reports: No Symptoms Reported Psychiatric: reports: Orientated x3, Anxious Other Systems: Reviewed and Negative Patient History - Patient Medical History Hx Anemia: No Hx Asthma: No Hx Chronic Obstructive Pulmonary Disease (COPD): No Hx Cancer: No Hx Cardiac Disorders: No Hx Congestive Heart Failure: No Hx Hypertension: No Hx Hypercholesterolemia: No Hx Pacemaker: No HX Cerebrovascular Accident: No Hx Seizures: No Hx Dementia: No Hx Diabetes: No Hx Gastrointestinal Disorders: No Hx Liver Disease: No Hx Genitourinary Disorders: No Hx Sexually Transmitted Disorders: Yes (HIV since 1993) Hx Renal Disease (ESRD): No Hx Thyroid Disease: No Hx Human Immunodeficiency Virus (HIV): Yes ( TRANSMITTED VIA IV DRUG USE) Hx Hepatitis C: No Hx Depression: No Hx Suicide Attempt: No Hx Bipolar Disorder: No Hx Schizophrenia: No Other Medical History: DENIES - Patient Surgical History Past Surgical History: No Hx Neurologic Surgery: No Hx Cataract Extraction: No Hx Cardiac Surgery: No Hx Lung Surgery: No Hx Breast Surgery: No Hx Breast Biopsy: No Hx Abdominal Surgery: No Hx Appendectomy: No Hx Cholecystectomy: No Hx Genitourinary Surgery: No Hx Orthopedic Surgery: No Anesthesia Reaction: No - PPD History Previous Implant?: Yes Documented Results: Negative w/proof Implanted On Prior [facility] Admission?: No Date: 12/13/18 Results: /08/19 PPD to be Administered?: No - Smoking Cessation Smoking history: Current every day smoker Have you smoked in the past 12 months: Yes Aproximately how many cigarettes per day: 20 Cigars Per Day: 0 Hx Chewing Tobacco Use: No Initiated information on smoking cessation: Yes 'Breaking Loose' booklet given: 05/01/19 - Substance & Tx. History Hx Alcohol Use: Yes Hx Substance Use: Yes Substance Use Type: Alcohol, Cocaine, Heroin, Prescribed (MMTP), Tranquilizers Hx Substance Use Treatment: Yes ([facility]) - Substances abused Alprazolam (Xanax) Substance route: Oral Frequency: Daily Amount used: 3 to 4 tabs Age of first use: 58 Date of last use: 04/29/19 Benzodiazepine (Klonopin) Substance route: Oral Frequency: Daily Amount used: 5 to 6 tabs of 2 mg Age of first use: 58 Date of last use: 04/29/19 Diazepam Substance route: Oral Frequency: Daily Amount used: 1/2MG Age of first use: 58 Date of last use: 12/11/18 Heroin Substance route: Injection Frequency: Daily Amount used: 5 bags Age of first use: 13 Date of last use: 04/30/19 Alcohol Substance route: Oral Frequency: Daily Amount used: 1 PINT Age of first use: 8 Date of last use: 04/30/19 Cocaine Substance route: Injection Frequency: 3-6 times per week Amount used: $50 Age of first use: 13 Date of last use: 04/29/19 Admission Physical Exam BHS - Vital Signs Vital Signs: Vital Signs - 24 hr 05/01/19 05/01/19 14:56 20:56 Temperature 96.6 F L 96.6 F L Pulse Rate 56 L 56 L Respiratory 17 17 Rate Blood Pressure 92/61 92/61 - Physical General Appearance: Yes: Irritable, Anxious HEENTM: Yes: EOMI, Normocephalic, Normal Voice, DON[place]E, Pharynx Normal, Other ( MISSING TEETH) Respiratory: Yes: Chest Non-Tender, Lungs Clear, Normal Breath Sounds, No Respiratory Distress, No Accessory Muscle Use Neck: Yes: No masses,lesions,Nodules, Supple, Trachea in good position Breast: Yes: Breast Exam Deferred Cardiology: Yes: Regular Rhythm, Regular Rate, S1, S2 Abdominal: Yes: Non Tender, Soft, Hernia (UMBILICAL) Genitourinary: Yes: Within Normal Limits Back: Yes: Normal Inspection Musculoskeletal: Yes: full range of Motion, Gait Steady Extremities: Yes: Normal Range of Motion, Non-Tender Neurological: Yes: Fully Oriented, Alert, Motor Strength 5/5 Integumentary: Yes: Moist (COOL) Lymphatic: Yes: Within Normal Limits - Diagnostic (1) Uncomplicated sedative, hypnotic or anxiolytic withdrawal Current Visit: Yes Status: Acute (2) Alcohol dependence with uncomplicated withdrawal Current Visit: Yes Status: Acute (3) Cocaine dependence Current Visit: Yes Status: Acute Qualifiers: Substance use status: uncomplicated (4) HIV (human immunodeficiency virus infection) Current Visit: Yes Status: Chronic Qualifiers: HIV symptom status: unspecified (5) Methadone maintenance therapy patient Current Visit: Yes Status: Chronic (6) Nicotine dependence Current Visit: Yes Status: Chronic Qualifiers: Nicotine product type: cigarettes Substance use status: uncomplicated Qualified Code(s): F17.210 - Nicotine dependence, cigarettes, uncomplicated (7) Positive PPD Current Visit: Yes Status: Chronic Cleared for Admission S - Detox or Rehab [facility] Level of Care: Medically Managed Detox Regimen/Protocol: Librium Claeared for Rehab Admission: No Breathalyzer - Breathalyzer Breathalyzer: 0 Urine Drug Screen - Test Device Lot number: [id number] Expiration date: 12/10/20 - Control Is test valid?: Yes - Results Drug screen NEGATIVE: No Urine drug screen results: HUGH-Cocaine, FEN-Fentanyl, MOP-Opiates, MTD-Methadone Inpatient Rehab Admission - Rehab Decision to Admit Inpatient rehab admission?: No
[2019-05-01] MEDS ORDERED: guaiFENesin 200 MG/10 ML 10 ML UNIT-DOSE CUPS PO PRN (21:15)
[2019-05-01] MEDS ORDERED: P-EPHED 60MG/TRIPROLIDI 2.5MG TABLET PO PRN (21:15)
[2019-05-01] MEDS ORDERED: MAG HYDROX/AL HYDROX/SIMETH 30 ML UNIT-DOSE CUP PO PRN (21:15)
[2019-05-01] MEDS ORDERED: METHOCARBAMOL 500 MG TABLET PO PRN (21:15)
[2019-05-01] MEDS ORDERED: NICOTINE POLACRILEX 2 MG GUM BUC PRN (21:15)
[2019-05-01] MEDS ORDERED: MAGNESIUM HYDROX 2400MG/30ML ORAL SUSPENSION 30 ML CUP PO PRN (21:15)
[2019-05-01] MEDS ORDERED: DICYCLOMINE HCL 10 MG CAPSULE PO PRN (21:15)
[2019-05-01] MEDS ORDERED: MENTHOL/PHENOL 1 EACH UD MM PRN (21:15)
[2019-05-01] MEDS ORDERED: BISMUTH SUBSALICYLATE 524 MG/30 ML UD PO PRN (21:15)
[2019-05-01] MEDS ORDERED: MAGNESIUM CITRATE 300 ML BOTTLE PO PRN (21:15)
[2019-05-01] MEDS ORDERED: ONDANSETRON *ODT* 4 MG TABLET SL PRN (21:15)
[2019-05-01] MEDS ORDERED: ACETAMINOPHEN 325 MG TABLET (FP) PO PRN ×2 (21:15)
[2019-05-01] MEDS ORDERED: chlordiazePOXIDE HCL 10 MG CAPSULE PO PRN (21:15)
[2019-05-01] MEDS ORDERED: IBUPROFEN 400 MG TABLET (FP) PO PRN (21:15)
[2019-05-01] MEDS: MELATONIN 5 MG TABLETS PO PRN (22:35)
[2019-05-01] MEDS: THIAMINE HCL 100 MG TABLET (FP) PO SCH (22:35)
[2019-05-01] MEDS: chlordiazePOXIDE HCL 25 MG CAPSULE PO SCH (22:35)
[2019-05-02] MEDS: chlordiazePOXIDE HCL 25 MG CAPSULE PO SCH ×3 (05:51→22:02)
[2019-05-02 09:55] LABS: ALBUMIN 3.1 g/dl (3.4-5.0); BILIRUBIN,TOTAL 0.2 mg/dL (0.2-1); BLOOD UREA NITROGEN 15.2 mg/dL (7-18); CALCIUM 8.3 mg/dL (8.5-10.1); POTASSIUM 4.5 mmol/L (3.5-5.1); TOT PROT 7.8 g/dl (6.4-8.2)
[2019-05-02 09:58] LABS: HEMATOCRIT 35.1 % (35.4-49); HEMOGLOBIN 11.6 GM/dL (11.7-16.9); MCH 29.5 pg (25.7-33.7); MEAN CELL VOLUME 89.5 fl (80-96); MEAN PLT VOLUME 8.2 fl (7.5-11.1); PLATELET COUNT 261 K/MM3 (134-434); RBC 3.92 M/mm3 (4.00-5.60); RDW 15.2 % (11.9-15.9); WHITE BLOOD COUNT 2.6 K/mm3 (4.0-10.0)
[2019-05-02] MEDS ORDERED: METHADONE HCL 40 MG DISPERSABLE TABLET PO ONE (10:00)
[2019-05-02] MEDS: PRENATAL VITAMINS W/ FOLIC ACID TABLET (FP) PO SCH (10:35)
[2019-05-02] MEDS: EFAVIRENZ 600 MG TABLET PO SCH (10:36)
[2019-05-02] MEDS: EMTRICITABINE 200MG/TENOFOVIR 300MG PO SCH (10:36)
[2019-05-02] MEDS: NICOTINE 21 MG/24 HOURS TOPICAL PATCH TD SCH (10:37)
--- NOTE | 2019-05-02 11:25 | PN ---
[facility] CIWA - CIWA Score Nausea/Vomitin-Mild Nausea/No Vomiting Muscle Tremors: 3 Anxiety: 3 Agitation: 2 Paroxysmal Sweats: 2 Orientation: 0-Oriented Tacttile Disturbances: 1-Very Mild Itch/Numbness Auditory Disturbances: 0-None Visual Disturbances: 0-None Headache: 1-Very Mild CIWA-Ar Total Score: 13 S Progress Note (SOAP) Subjective: doing well with librium detox regimen had methadone 80 mg po today feeling better less tremor ambulating on hallway social with peers in day room Objective: 05/02/19 11:25 Vital Signs Temperature 99.7 F H 05/02/19 09:08 Pulse Rate 72 05/02/19 09:08 Respiratory Rate 18 05/02/19 09:08 Blood Pressure 90/55 L 05/02/19 09:08 O2 Sat by Pulse Oximetry (%) Laboratory Last Values WBC 2.6 K/mm3 (4.0-10.0) L 05/02/19 08:00 RBC 3.92 M/mm3 (4.00-5.60) L 05/02/19 08:00 Hgb 11.6 GM/dL (11.7-16.9) L 05/02/19 08:00 Hct 35.1 % (35.4-49) L 05/02/19 08:00 MCV 89.5 fl (80-96) 05/02/19 08:00 MCH 29.5 pg (25.7-33.7) 05/02/19 08:00 MCHC 33.0 g/dl (32.0-35.9) 05/02/19 08:00 RDW 15.2 % (11.9-15.9) 05/02/19 08:00 Plt Count 261 K/MM3 (134-434) 05/02/19 08:00 MPV 8.2 fl (7.5-11.1) 05/02/19 08:00 Sodium 140 mmol/L (136-145) 05/02/19 08:00 Potassium 4.5 mmol/L (3.5-5.1) 05/02/19 08:00 Chloride 104 mmol/L (98-107) 05/02/19 08:00 Carbon Dioxide 31 mmol/L (21-32) 05/02/19 08:00 Anion Gap 5 MMOL/L (8-16) L 05/02/19 08:00 BUN 15.2 mg/dL (7-18) 05/02/19 08:00 Creatinine 1.0 mg/dL (0.55-1.3) 05/02/19 08:00 Est GFR (CKD-EPI)AfAm 94.39 05/02/19 08:00 Est GFR (CKD-EPI)NonAf 81.44 05/02/19 08:00 Random Glucose 90 mg/dL (74-106) 05/02/19 08:00 Calcium 8.3 mg/dL (8.5-10.1) L 05/02/19 08:00 Total Bilirubin 0.2 mg/dL (0.2-1) 05/02/19 08:00 AST 31 U/L (15-37) 05/02/19 08:00 ALT 19 U/L (13-61) 05/02/19 08:00 Alkaline Phosphatase 71 U/L (45-117) 05/02/19 08:00 Total Protein 7.8 g/dl (6.4-8.2) 05/02/19 08:00 Albumin 3.1 g/dl (3.4-5.0) L 05/02/19 08:00 05/02/19 11:26 long history of hiv treated with atriplate low wbc Assessment: 05/02/19 11:27 alcohol and benzo withdrawal sx Plan: continue librium detox regimen
[2019-05-02] MEDS: MELATONIN 5 MG TABLETS PO PRN (22:01)
[2019-05-02] MEDS: THIAMINE HCL 100 MG TABLET (FP) PO SCH (22:02)
[2019-05-03] MEDS: hydrOXYzine PAMOATE 25 MG CAPSULE (FP) PO PRN (02:47)
[2019-05-03] MEDS: chlordiazePOXIDE 5 MG CAPSULE PO SCH ×3 (05:47→22:19)
[2019-05-03] MEDS: METHADONE HCL 40 MG DISPERSABLE TABLET PO SCH (05:47)
[2019-05-03] MEDS: NICOTINE 21 MG/24 HOURS TOPICAL PATCH TD SCH (10:07)
[2019-05-03] MEDS: PRENATAL VITAMINS W/ FOLIC ACID TABLET (FP) PO SCH (10:07)
--- NOTE | 2019-05-03 11:48 | PN ---
[facility] CIWA - CIWA Score Nausea/Vomitin-Mild Nausea/No Vomiting Muscle Tremors: 2 Anxiety: 2 Agitation: 2 Paroxysmal Sweats: 1-Minimal Palms Moist Orientation: 0-Oriented Tacttile Disturbances: 0-None Auditory Disturbances: 1-Very Mild Visual Disturbances: 0-None Headache: 0-None Present CIWA-Ar Total Score: 9 [facility] Progress Note (SOAP) Subjective: doing well with librium detox regimen ambulating on hallway social with peers received methadone 80 mg po daily Objective: 05/03/19 11:47 Vital Signs Temperature 98.4 F 05/03/19 09:18 Pulse Rate 61 05/03/19 09:18 Respiratory Rate 16 05/03/19 09:18 Blood Pressure 90/56 L 05/03/19 09:18 O2 Sat by Pulse Oximetry (%) Laboratory Last Values WBC 2.6 K/mm3 (4.0-10.0) L 05/02/19 08:00 RBC 3.92 M/mm3 (4.00-5.60) L 05/02/19 08:00 Hgb 11.6 GM/dL (11.7-16.9) L 05/02/19 08:00 Hct 35.1 % (35.4-49) L 05/02/19 08:00 MCV 89.5 fl (80-96) 05/02/19 08:00 MCH 29.5 pg (25.7-33.7) 05/02/19 08:00 MCHC 33.0 g/dl (32.0-35.9) 05/02/19 08:00 RDW 15.2 % (11.9-15.9) 05/02/19 08:00 Plt Count 261 K/MM3 (134-434) 05/02/19 08:00 MPV 8.2 fl (7.5-11.1) 05/02/19 08:00 Sodium 140 mmol/L (136-145) 05/02/19 08:00 Potassium 4.5 mmol/L (3.5-5.1) 05/02/19 08:00 Chloride 104 mmol/L (98-107) 05/02/19 08:00 Carbon Dioxide 31 mmol/L (21-32) 05/02/19 08:00 Anion Gap 5 MMOL/L (8-16) L 05/02/19 08:00 BUN 15.2 mg/dL (7-18) 05/02/19 08:00 Creatinine 1.0 mg/dL (0.55-1.3) 05/02/19 08:00 Est GFR (CKD-EPI)AfAm 94.39 05/02/19 08:00 Est GFR (CKD-EPI)NonAf 81.44 05/02/19 08:00 Random Glucose 90 mg/dL (74-106) 05/02/19 08:00 Calcium 8.3 mg/dL (8.5-10.1) L 05/02/19 08:00 Total Bilirubin 0.2 mg/dL (0.2-1) 05/02/19 08:00 AST 31 U/L (15-37) 05/02/19 08:00 ALT 19 U/L (13-61) 05/02/19 08:00 Alkaline Phosphatase 71 U/L (45-117) 05/02/19 08:00 Total Protein 7.8 g/dl (6.4-8.2) 05/02/19 08:00 Albumin 3.1 g/dl (3.4-5.0) L 05/02/19 08:00 lab noted low wbc 05/03/19 11:49 long history of low wbc encourage the patient follow up with methadone program Assessment: 05/03/19 11:49 alcohol and benzo withdrawal sx Plan: continue librium detox regimen
[2019-05-03] MEDS: EMTRICITABINE 200MG/TENOFOVIR 300MG PO SCH (13:27)
[2019-05-03] MEDS: EFAVIRENZ 600 MG TABLET PO SCH (13:27)
[2019-05-03] MEDS: MELATONIN 5 MG TABLETS PO PRN (22:19)
[2019-05-03] MEDS: THIAMINE HCL 100 MG TABLET (FP) PO SCH (22:19)
[2019-05-04] MEDS ORDERED: chlordiazePOXIDE HCL 10 MG CAPSULE PO PRN
[2019-05-04] MEDS: hydrOXYzine PAMOATE 25 MG CAPSULE (FP) PO PRN (02:08)
[2019-05-04] MEDS ORDERED: chlordiazePOXIDE HCL 10 MG CAPSULE PO SCH (05:00)
[2019-05-04] MEDS: METHADONE HCL 40 MG DISPERSABLE TABLET PO SCH (05:27)
[2019-05-04 09:13] VITALS: BP 94/61; PULSE 56; TEMP 96.8
--- NOTE | 2019-05-04 12:47 | DS ---
[facility] Detox Discharge Summary Admission Date: 05/01/19 Discharge Date: 05/04/19 - History Present History: Alcohol Dependence, Sedative Dependence Additional Comments: 59 years old male admitted on 05/01/19 for alcohol and benzo withdrawal sx did well with librium detox regimen prefers early discharge to methadone program and visit his ID provider alert oriented x 3 Cardiac S1S2 regular rate rhythm respiratory clear lung bilaterally on auscultatin extremities full range of motion - Physical Exam Results Vital Signs: Vital Signs Temperature 96.8 F L 05/04/19 09:13 Pulse Rate 56 L 05/04/19 09:13 Respiratory Rate 16 05/04/19 09:13 Blood Pressure 94/61 05/04/19 09:13 O2 Sat by Pulse Oximetry (%) Pertinent Admission Physical Exam Findings: alcohol and benzo withdrawal sx Laboratory Last Values WBC 2.6 K/mm3 (4.0-10.0) L 05/02/19 08:00 RBC 3.92 M/mm3 (4.00-5.60) L 05/02/19 08:00 Hgb 11.6 GM/dL (11.7-16.9) L 05/02/19 08:00 Hct 35.1 % (35.4-49) L 05/02/19 08:00 MCV 89.5 fl (80-96) 05/02/19 08:00 MCH 29.5 pg (25.7-33.7) 05/02/19 08:00 MCHC 33.0 g/dl (32.0-35.9) 05/02/19 08:00 RDW 15.2 % (11.9-15.9) 05/02/19 08:00 Plt Count 261 K/MM3 (134-434) 05/02/19 08:00 MPV 8.2 fl (7.5-11.1) 05/02/19 08:00 Sodium 140 mmol/L (136-145) 05/02/19 08:00 Potassium 4.5 mmol/L (3.5-5.1) 05/02/19 08:00 Chloride 104 mmol/L (98-107) 05/02/19 08:00 Carbon Dioxide 31 mmol/L (21-32) 05/02/19 08:00 Anion Gap 5 MMOL/L (8-16) L 05/02/19 08:00 BUN 15.2 mg/dL (7-18) 05/02/19 08:00 Creatinine 1.0 mg/dL (0.55-1.3) 05/02/19 08:00 Est GFR (CKD-EPI)AfAm 94.39 05/02/19 08:00 Est GFR (CKD-EPI)NonAf 81.44 05/02/19 08:00 Random Glucose 90 mg/dL (74-106) 05/02/19 08:00 Calcium 8.3 mg/dL (8.5-10.1) L 05/02/19 08:00 Total Bilirubin 0.2 mg/dL (0.2-1) 05/02/19 08:00 AST 31 U/L (15-37) 05/02/19 08:00 ALT 19 U/L (13-61) 05/02/19 08:00 Alkaline Phosphatase 71 U/L (45-117) 05/02/19 08:00 Total Protein 7.8 g/dl (6.4-8.2) 05/02/19 08:00 Albumin 3.1 g/dl (3.4-5.0) L 05/02/19 08:00 lab noted long history of hiv with ART will bringing in lab report to ID or methadone program for follow up - Treatment Hospital Course: Detox Protocol Followed, Detoxed Safely, Responded well, Discharged Condition Good, Rehab Referral Accepted Patient has Accepted a Rehab Referral to: [facility] meth[facility]one program - Medication Discharge Medications: Ambulatory Orders Efavirenz/Emtricit/Tenofovr Df [Atripla Tablet] 1 each PO DAILY 12/13/18 - Diagnosis (1) Alcohol dependence with uncomplicated withdrawal Status: Acute (2) Uncomplicated sedative, hypnotic or anxiolytic withdrawal Status: Acute (3) HIV (human immunodeficiency virus infection) Status: Chronic Qualifiers: HIV symptom status: asymptomatic Qualified Code(s): Z21 - Asymptomatic human immunodeficiency virus [HIV] infection status (4) Methadone maintenance therapy patient Status: Chronic (5) Nicotine dependence Status: Acute Qualifiers: Nicotine product type: cigarettes Substance use status: in withdrawal Qualified Code(s): F17.213 - Nicotine dependence, cigarettes, with withdrawal (6) Positive PPD Status: Resolved - AMA Did Patient Leave Against Medical Advice: No COWS (PN) - Opiate Withdrawal Resting Pulse: 0= OR 80 or Below Sweatin= Chills/Flushing Restless Observation: 0= Sits Still Pupil Size: 0= Normal to Room Light Bone or Joint Aches: 1= Mild Discomfort Runny Nose/ Eye Tearin= None GI Upset > 30mins: 0= None Tremor Observation of Outstretched Hands: 1= Tremor [place], Not Seen Yawning Observation: 0= None Anxiety or Irritability: 1=Feels Anxious/Irritable Goose Flesh Skin: 0=Smooth Skin COWS Score: 4 CIWA Score - CIWA Score Nausea/Vomitin-No Nausea/No Vomiting Muscle Tremors: 1-None Visible, but [place] Anxiety: 1-Mildly Anxious Agitation: 1-Slight > Activity Paroxysmal Sweats: No Perspiration Orientation: 0-Oriented Tacttile Disturbances: 0-None Auditory Disturbances: 1-Very Mild Visual Disturbances: 0-None Headache: 0-None Present CIWA-Ar Total Score: 4
[2019-05-05] MEDS ORDERED: chlordiazePOXIDE HCL 10 MG CAPSULE PO ONE (05:00)
== END 2019-05-04 09:34 | disposition home or self-care (01) | DRG 773 ==
LOC: YASAS 13:47 → Y3N 21:28
PROVIDERS: ADMIT Allergy & Immunology; ATTEND Allergy & Immunology
PROC: HZ2ZZZZ Detoxification Services for Substance Abuse Treatment (ICD-10-PCS; principal; 2019-05-01)
DX: F10.230 Alcohol dependence with withdrawal, uncomplicated (principal); F11.20 Opioid dependence, uncomplicated; F13.230 Sedative, hypnotic or anxiolytic dependence with withdrawal, uncomplicated; F14.20 Cocaine dependence, uncomplicated; F17.213 Nicotine dependence, cigarettes, with withdrawal; Z21 Asymptomatic human immunodeficiency virus [HIV] infection status; R76.11 Nonspecific reaction to tuberculin skin test without active tuberculosis
CPT/HCPCS: 36415; 80053; 85027

== ENCOUNTER 2021-03-14 11:21 | Inpatient (IN) | payer OTHER ==
[2021-03-14 12:39] VITALS: BMI 25.0
[2021-03-14] MEDS ORDERED: chlordiazePOXIDE HCL 25 MG CAPSULE PO PRN (13:18)
[2021-03-14] MEDS ORDERED: MAGNESIUM HYDROX 2400MG/30ML ORAL SUSPENSION 30 ML CUP PO PRN (13:18)
[2021-03-14] MEDS ORDERED: NICOTINE 10 MG CARTRIDGE (INHALER) IH PRN (13:18)
[2021-03-14] MEDS ORDERED: MAG HYDROX/AL HYDROX/SIMETH 30 ML UNIT-DOSE CUP PO PRN (13:18)
[2021-03-14] MEDS ORDERED: ONDANSETRON *ODT* 4 MG TABLET SL PRN (13:18)
[2021-03-14] MEDS ORDERED: hydrOXYzine PAMOATE 25 MG CAPSULE (FP) PO PRN (13:18)
[2021-03-14] MEDS ORDERED: MAGNESIUM CITRATE 300 ML BOTTLE PO PRN (13:18)
[2021-03-14] MEDS ORDERED: MENTHOL/PHENOL 1 EACH UD MM PRN (13:18)
[2021-03-14] MEDS ORDERED: ACETAMINOPHEN 325 MG TABLET (FP) PO PRN ×2 (13:18)
[2021-03-14] MEDS ORDERED: BISMUTH SUBSALICYLATE 262 MG/15 ML BTL PO PRN (13:18)
[2021-03-14] MEDS ORDERED: METHOCARBAMOL 500 MG TABLET PO PRN (13:18)
[2021-03-14] MEDS ORDERED: LORazepam 1 MG TABLET PO PRN (13:26)
[2021-03-14] MEDS ORDERED: methaDONE HCL 40 MG DISPERSABLE TABLET PO SCH (13:30)
[2021-03-14] MEDS ORDERED: methaDONE HCL 40 MG DISPERSABLE TABLET ONE (15:23)
[2021-03-14] MEDS ORDERED: methaDONE HCL 10 MG TABLET ONE (15:23)
[2021-03-14] MEDS: methaDONE 80 MG, methaDONE 20 MG PO SCH (15:26)
[2021-03-14] MEDS: IBUPROFEN 400 MG TABLET (FP) PO PRN (15:30)
[2021-03-14 16:50] LABS: CALCIUM 8.3 mg/dL (8.5-10.1)
[2021-03-14 16:51] LABS: ALBUMIN 2.8 g/dl (3.4-5.0); BLOOD UREA NITROGEN 11.4 mg/dL (7-18)
[2021-03-14 16:54] LABS: CREATININE 0.9 mg/dL (0.55-1.3)
[2021-03-14 16:55] LABS: BILIRUBIN,TOTAL 0.2 mg/dL (0.2-1); TOT PROT 8.1 g/dl (6.4-8.2)
[2021-03-14 16:56] LABS: HEMATOCRIT 30.5 % (35.4-49); HEMOGLOBIN 10.2 GM/dL (11.7-16.9); MCH 29.4 pg (25.7-33.7); MCHC 33.3 g/dl (32.0-35.9); MEAN CELL VOLUME 88.3 fl (80-96); MEAN PLT VOLUME 7.8 fl (7.5-11.1); PLATELET COUNT 242 10^3/uL (134-434); RBC 3.46 M/mm3 (4.00-5.60); WHITE BLOOD COUNT 3.8 K/mm3 (4.0-10.0)
[2021-03-14] MEDS ORDERED: chlordiazePOXIDE HCL 25 MG CAPSULE PO SCH (17:00)
[2021-03-14] MEDS: LORazepam 2 MG TABLET PO SCH ×2 (17:32→23:22)
[2021-03-14] MEDS: MELATONIN 5 MG TABLETS PO SCH (23:21)
[2021-03-14] MEDS: THIAMINE HCL 100 MG TABLET (FP) PO SCH (23:21)
[2021-03-14] MEDS: BACITRACIN 0.9 GM PACKET TP SCH (23:22)
[2021-03-15] MEDS: LORazepam 2 MG TABLET PO SCH ×4 (05:52→22:30)
[2021-03-15] MEDS ORDERED: methaDONE HCL 10 MG TABLET ONE (09:32)
[2021-03-15] MEDS ORDERED: methaDONE HCL 40 MG DISPERSABLE TABLET ONE (09:32)
[2021-03-15] MEDS: methaDONE 80 MG, methaDONE 20 MG PO SCH (09:35)
[2021-03-15] MEDS: BICTEGRAV/EMTRICIT/TENOFOV (BIKTARVY) 50-200-25 MG TABLET PO SCH (09:38)
[2021-03-15] MEDS: BACITRACIN 0.9 GM PACKET TP SCH ×2 (09:39→22:29)
[2021-03-15] MEDS: NICOTINE 21 MG/24 HOURS TOPICAL PATCH TD SCH (09:40)
[2021-03-15] MEDS: PRENATAL VITAMINS W/ FOLIC ACID TABLET (FP) PO SCH (11:35)
[2021-03-15] MEDS: THIAMINE HCL 100 MG TABLET (FP) PO SCH (22:30)
[2021-03-15] MEDS: MELATONIN 5 MG TABLETS PO SCH (22:30)
[2021-03-16] MEDS: IBUPROFEN 400 MG TABLET (FP) PO PRN (03:31)
[2021-03-16] MEDS ORDERED: methaDONE HCL 10 MG TABLET ONE (04:12)
[2021-03-16] MEDS ORDERED: methaDONE HCL 40 MG DISPERSABLE TABLET ONE (04:13)
[2021-03-16] MEDS ORDERED: chlordiazePOXIDE HCL 25 MG CAPSULE PO SCH (05:00)
[2021-03-16] MEDS: methaDONE 80 MG, methaDONE 20 MG PO SCH (06:34)
[2021-03-16] MEDS: LORazepam 1 MG TABLET PO SCH ×4 (06:35→22:38)
[2021-03-16] MEDS: BACITRACIN 0.9 GM PACKET TP SCH ×2 (10:52→22:39)
[2021-03-16] MEDS: PRENATAL VITAMINS W/ FOLIC ACID TABLET (FP) PO SCH (10:52)
[2021-03-16] MEDS: NICOTINE 21 MG/24 HOURS TOPICAL PATCH TD SCH (10:52)
[2021-03-16] MEDS: MELATONIN 5 MG TABLETS PO SCH (22:38)
[2021-03-16] MEDS: THIAMINE HCL 100 MG TABLET (FP) PO SCH (22:39)
[2021-03-17] MEDS ORDERED: chlordiazePOXIDE HCL 10 MG CAPSULE PO PRN
[2021-03-17] MEDS ORDERED: LORazepam 0.5 MG TABLET PO PRN
[2021-03-17] MEDS ORDERED: methaDONE HCL 10 MG TABLET ONE (04:23)
[2021-03-17] MEDS ORDERED: methaDONE HCL 40 MG DISPERSABLE TABLET ONE (04:23)
[2021-03-17] MEDS ORDERED: chlordiazePOXIDE HCL 10 MG CAPSULE PO SCH (05:00)
[2021-03-17] MEDS: BICTEGRAV/EMTRICIT/TENOFOV (BIKTARVY) 50-200-25 MG TABLET PO SCH ×2 (05:09→05:25)
[2021-03-17] MEDS: LORazepam 0.5 MG TABLET PO SCH ×4 (05:23→22:03)
[2021-03-17] MEDS: methaDONE 80 MG, methaDONE 20 MG PO SCH (05:23)
[2021-03-17] MEDS: NICOTINE 21 MG/24 HOURS TOPICAL PATCH TD SCH (10:14)
[2021-03-17] MEDS: PRENATAL VITAMINS W/ FOLIC ACID TABLET (FP) PO SCH (10:14)
[2021-03-17] MEDS: BACITRACIN 0.9 GM PACKET TP SCH ×2 (10:14→22:03)
[2021-03-17] MEDS: THIAMINE HCL 100 MG TABLET (FP) PO SCH (22:03)
[2021-03-17] MEDS: MELATONIN 5 MG TABLETS PO SCH (22:03)
[2021-03-18] MEDS ORDERED: methaDONE HCL 10 MG TABLET ONE (04:38)
[2021-03-18] MEDS ORDERED: methaDONE HCL 40 MG DISPERSABLE TABLET ONE (04:38)
[2021-03-18] MEDS ORDERED: chlordiazePOXIDE HCL 10 MG CAPSULE PO SCH (05:00)
[2021-03-18] MEDS ORDERED: LORazepam 0.5 MG TABLET PO ONE (05:00)
[2021-03-18] MEDS: methaDONE 80 MG, methaDONE 20 MG PO SCH (05:10)
[2021-03-18] MEDS: BICTEGRAV/EMTRICIT/TENOFOV (BIKTARVY) 50-200-25 MG TABLET PO SCH (06:59)
[2021-03-18] MEDS: BACITRACIN 0.9 GM PACKET TP SCH (10:12)
[2021-03-18] MEDS: PRENATAL VITAMINS W/ FOLIC ACID TABLET (FP) PO SCH (10:12)
[2021-03-18] MEDS: NICOTINE 21 MG/24 HOURS TOPICAL PATCH TD SCH (10:13)
[2021-03-18 12:49] VITALS: BP 101/59; PULSE 59; TEMP 97.3
[2021-03-19] MEDS ORDERED: chlordiazePOXIDE HCL 10 MG CAPSULE PO ONE (05:00)
== END 2021-03-18 14:52 | disposition home or self-care (01) | DRG 773 ==
LOC: YASAS 11:21 → Y6N 13:38 → Y3N 03-15 19:10
PROVIDERS: ADMIT Allergy & Immunology; ATTEND Allergy & Immunology
PROC: HZ2ZZZZ Detoxification Services for Substance Abuse Treatment (ICD-10-PCS; principal; 2021-03-14)
DX: F10.230 Alcohol dependence with withdrawal, uncomplicated (principal); F11.20 Opioid dependence, uncomplicated; F13.20 Sedative, hypnotic or anxiolytic dependence, uncomplicated; F14.20 Cocaine dependence, uncomplicated; F17.210 Nicotine dependence, cigarettes, uncomplicated; Z21 Asymptomatic human immunodeficiency virus [HIV] infection status; S50.811A Abrasion of right forearm, initial encounter; W01.0XXA Fall on same level from slipping, tripping and stumbling without subsequent striking against object, initial encounter; Y93.89 Activity, other specified; Y92.238 Other place in hospital as the place of occurrence of the external cause
CPT/HCPCS: 36415; 71046-TC-FY; 80053; 85027; 86780; C9803; U0003; U0005

== ENCOUNTER 2021-07-08 11:29 | Inpatient (IN) | payer OTHER ==
[2021-07-08] MEDS ORDERED: MAGNESIUM HYDROX 2400MG/30ML ORAL SUSPENSION 30 ML CUP PO PRN (13:35)
[2021-07-08] MEDS ORDERED: MAG HYDROX/AL HYDROX/SIMETH 30 ML UNIT-DOSE CUP PO PRN (13:35)
[2021-07-08] MEDS ORDERED: ACETAMINOPHEN 325 MG TABLET (FP) PO PRN ×2 (13:35)
[2021-07-08] MEDS ORDERED: chlordiazePOXIDE HCL 25 MG CAPSULE PO PRN (13:35)
[2021-07-08] MEDS ORDERED: ONDANSETRON *ODT* 4 MG TABLET SL PRN (13:35)
[2021-07-08] MEDS ORDERED: BISMUTH SUBSALICYLATE 524 MG/30 ML PO PRN (13:35)
[2021-07-08] MEDS ORDERED: NICOTINE 10 MG CARTRIDGE (INHALER) IH PRN (13:35)
[2021-07-08] MEDS ORDERED: MENTHOL/PHENOL 1 EACH UD MM PRN (13:35)
[2021-07-08] MEDS ORDERED: METHOCARBAMOL 500 MG TABLET PO PRN (13:35)
[2021-07-08] MEDS ORDERED: cloNIDine HCL 0.1 MG TABLET PO PRN (13:35)
[2021-07-08] MEDS ORDERED: MAGNESIUM CITRATE 300 ML BOTTLE PO PRN (13:35)
[2021-07-08 13:44] VITALS: BMI 29.6
[2021-07-08] MEDS ORDERED: methaDONE HCL 10 MG TABLET (FOR DETOX USE ONLY) PO ONE (16:30)
[2021-07-08] MEDS ORDERED: methaDONE HCL 10 MG TABLET PO ONE ×2 (17:26→17:33)
[2021-07-08] MEDS ORDERED: methaDONE 40 MG, methaDONE 10 MG PO ONE (17:45)
[2021-07-08] MEDS: hydrOXYzine PAMOATE 25 MG CAPSULE (FP) PO SCH ×2 (20:36→22:23)
[2021-07-08] MEDS: chlordiazePOXIDE HCL 25 MG CAPSULE PO SCH ×2 (20:36→22:22)
[2021-07-08] MEDS ORDERED: methaDONE HCL 10 MG TABLET ONE (20:43)
[2021-07-08] MEDS ORDERED: methaDONE HCL 40 MG DISPERSABLE TABLET ONE (20:43)
[2021-07-08] MEDS: THIAMINE HCL 100 MG TABLET (FP) PO SCH (22:23)
[2021-07-08] MEDS: MELATONIN 5 MG TABLETS PO SCH (22:23)
[2021-07-09] MEDS ORDERED: methaDONE HCL 10 MG TABLET ONE (04:11)
[2021-07-09] MEDS ORDERED: methaDONE HCL 40 MG DISPERSABLE TABLET ONE (04:11)
[2021-07-09] MEDS: chlordiazePOXIDE HCL 25 MG CAPSULE PO SCH ×4 (05:26→22:25)
[2021-07-09] MEDS: methaDONE 80 MG, methaDONE 20 MG PO SCH (05:27)
[2021-07-09] MEDS: hydrOXYzine PAMOATE 25 MG CAPSULE (FP) PO SCH ×5 (05:27→22:26)
[2021-07-09] MEDS ORDERED: methaDONE HCL 10 MG TABLET PO SCH (06:00)
[2021-07-09 10:04] LABS: HEMATOCRIT 32.9 % (35.4-49); HEMOGLOBIN 10.9 GM/dL (11.7-16.9); MCH 28.6 pg (25.7-33.7); MCHC 33.1 g/dl (32.0-35.9); MEAN CELL VOLUME 86.3 fl (80-96); MEAN PLT VOLUME 7.6 fl (7.5-11.1); PLATELET COUNT 272 10^3/uL (134-434); RBC 3.82 M/mm3 (4.00-5.60); RDW 15.3 % (11.9-15.9); WHITE BLOOD COUNT 3.5 K/mm3 (4.0-10.0)
[2021-07-09 10:13] LABS: ALBUMIN 2.9 g/dl (3.4-5.0); CALCIUM 8.9 mg/dL (8.5-10.1)
[2021-07-09 10:14] LABS: BLOOD UREA NITROGEN 22.5 mg/dL (7-18)
[2021-07-09 10:16] LABS: CREATININE 1.1 mg/dL (0.55-1.3)
[2021-07-09 10:18] LABS: BILIRUBIN,TOTAL 0.3 mg/dL (0.2-1); TOT PROT 8.2 g/dl (6.4-8.2)
[2021-07-09] MEDS: PRENATAL VITAMINS W/ FOLIC ACID TABLET (FP) PO SCH (10:27)
[2021-07-09] MEDS: BICTEGRAV/EMTRICIT/TENOFOV (BIKTARVY) 50-200-25 MG TABLET PO SCH (10:27)
[2021-07-09] MEDS: MELATONIN 5 MG TABLETS PO SCH (22:24)
[2021-07-09] MEDS: THIAMINE HCL 100 MG TABLET (FP) PO SCH (22:26)
[2021-07-10] MEDS ORDERED: methaDONE HCL 10 MG TABLET ONE (03:54)
[2021-07-10] MEDS ORDERED: methaDONE HCL 40 MG DISPERSABLE TABLET ONE (03:55)
[2021-07-10] MEDS: chlordiazePOXIDE HCL 25 MG CAPSULE PO SCH ×4 (05:54→22:00)
[2021-07-10] MEDS: methaDONE 80 MG, methaDONE 20 MG PO SCH (05:55)
[2021-07-10] MEDS: hydrOXYzine PAMOATE 25 MG CAPSULE (FP) PO SCH ×5 (05:55→21:57)
[2021-07-10] MEDS: BICTEGRAV/EMTRICIT/TENOFOV (BIKTARVY) 50-200-25 MG TABLET PO SCH (07:45)
[2021-07-10] MEDS ORDERED: methaDONE HCL 10 MG TABLET (FOR DETOX USE ONLY) PO ONE (10:00)
[2021-07-10] MEDS: IBUPROFEN 400 MG TABLET (FP) PO PRN (10:31)
[2021-07-10] MEDS: PRENATAL VITAMINS W/ FOLIC ACID TABLET (FP) PO SCH (10:57)
[2021-07-10] MEDS ORDERED: LACTULOSE 20 GM/30 ML UDC (FOR ORAL USE ONLY) PO ONE (17:23)
[2021-07-10] MEDS: THIAMINE HCL 100 MG TABLET (FP) PO SCH (21:57)
[2021-07-10] MEDS: MELATONIN 5 MG TABLETS PO SCH (22:00)
[2021-07-11] MEDS ORDERED: chlordiazePOXIDE HCL 10 MG CAPSULE PO PRN
[2021-07-11] MEDS ORDERED: methaDONE HCL 10 MG TABLET ONE (04:18)
[2021-07-11] MEDS ORDERED: methaDONE HCL 40 MG DISPERSABLE TABLET ONE (04:19)
[2021-07-11] MEDS: methaDONE 80 MG, methaDONE 20 MG PO SCH (05:24)
[2021-07-11] MEDS: hydrOXYzine PAMOATE 25 MG CAPSULE (FP) PO SCH ×5 (05:24→22:44)
[2021-07-11] MEDS: chlordiazePOXIDE HCL 10 MG CAPSULE PO SCH ×4 (05:25→22:44)
[2021-07-11] MEDS: BICTEGRAV/EMTRICIT/TENOFOV (BIKTARVY) 50-200-25 MG TABLET PO SCH (07:45)
[2021-07-11] MEDS: PRENATAL VITAMINS W/ FOLIC ACID TABLET (FP) PO SCH (10:24)
[2021-07-11] MEDS: LACTULOSE 20 GM/30 ML UDC (FOR ORAL USE ONLY) PO SCH ×3 (14:30→22:45)
[2021-07-11] MEDS: MELATONIN 5 MG TABLETS PO SCH (22:44)
[2021-07-11] MEDS: THIAMINE HCL 100 MG TABLET (FP) PO SCH (22:44)
[2021-07-12] MEDS ORDERED: methaDONE HCL 10 MG TABLET ONE (03:57)
[2021-07-12] MEDS ORDERED: methaDONE HCL 40 MG DISPERSABLE TABLET ONE (03:57)
[2021-07-12] MEDS: hydrOXYzine PAMOATE 25 MG CAPSULE (FP) PO SCH ×5 (05:34→22:19)
[2021-07-12] MEDS: methaDONE 80 MG, methaDONE 20 MG PO SCH (05:34)
[2021-07-12] MEDS: chlordiazePOXIDE HCL 10 MG CAPSULE PO SCH ×2 (05:37→18:30)
[2021-07-12] MEDS: BICTEGRAV/EMTRICIT/TENOFOV (BIKTARVY) 50-200-25 MG TABLET PO SCH (08:06)
[2021-07-12] MEDS ORDERED: methaDONE HCL 10 MG TABLET (FOR DETOX USE ONLY) PO ONE (10:00)
[2021-07-12] MEDS: PRENATAL VITAMINS W/ FOLIC ACID TABLET (FP) PO SCH (10:21)
[2021-07-12] MEDS: LACTULOSE 20 GM/30 ML UDC (FOR ORAL USE ONLY) PO SCH ×4 (10:23→22:19)
[2021-07-12] MEDS: THIAMINE HCL 100 MG TABLET (FP) PO SCH (22:19)
[2021-07-12] MEDS: MELATONIN 5 MG TABLETS PO SCH (22:19)
[2021-07-13] MEDS ORDERED: methaDONE HCL 40 MG DISPERSABLE TABLET ONE (04:23)
[2021-07-13] MEDS ORDERED: methaDONE HCL 10 MG TABLET ONE (04:23)
[2021-07-13] MEDS ORDERED: chlordiazePOXIDE HCL 10 MG CAPSULE PO ONE (05:00)
[2021-07-13] MEDS: methaDONE 80 MG, methaDONE 20 MG PO SCH (05:55)
[2021-07-13] MEDS: hydrOXYzine PAMOATE 25 MG CAPSULE (FP) PO SCH ×5 (05:56→22:12)
[2021-07-13] MEDS: BICTEGRAV/EMTRICIT/TENOFOV (BIKTARVY) 50-200-25 MG TABLET PO SCH (07:22)
[2021-07-13] MEDS: PRENATAL VITAMINS W/ FOLIC ACID TABLET (FP) PO SCH (10:17)
[2021-07-13] MEDS: LACTULOSE 20 GM/30 ML UDC (FOR ORAL USE ONLY) PO SCH ×4 (10:17→22:12)
[2021-07-13] MEDS: MELATONIN 5 MG TABLETS PO SCH (22:12)
[2021-07-13] MEDS: THIAMINE HCL 100 MG TABLET (FP) PO SCH (22:13)
[2021-07-14] MEDS: IBUPROFEN 400 MG TABLET (FP) PO PRN (01:33)
[2021-07-14] MEDS ORDERED: methaDONE HCL 40 MG DISPERSABLE TABLET ONE (04:12)
[2021-07-14] MEDS ORDERED: methaDONE HCL 10 MG TABLET ONE (04:12)
[2021-07-14] MEDS: methaDONE 80 MG, methaDONE 20 MG PO SCH (05:45)
[2021-07-14] MEDS: hydrOXYzine PAMOATE 25 MG CAPSULE (FP) PO SCH (05:45)
[2021-07-14 09:05] VITALS: BP 92/58; PULSE 61; TEMP 97.1
== END 2021-07-14 10:31 | disposition home or self-care (01) | DRG 773 ==
LOC: YASAS 11:29 → Y3N 15:39
PROVIDERS: ADMIT Allergy & Immunology; ATTEND Allergy & Immunology
PROC: HZ2ZZZZ Detoxification Services for Substance Abuse Treatment (ICD-10-PCS; principal; 2021-07-08)
DX: F11.23 Opioid dependence with withdrawal (principal); F10.230 Alcohol dependence with withdrawal, uncomplicated; F13.20 Sedative, hypnotic or anxiolytic dependence, uncomplicated; F14.20 Cocaine dependence, uncomplicated; F17.210 Nicotine dependence, cigarettes, uncomplicated; F41.8 Other specified anxiety disorders; F32.A Depression, unspecified; Z21 Asymptomatic human immunodeficiency virus [HIV] infection status; E72.20 Disorder of urea cycle metabolism, unspecified; E88.09 Other disorders of plasma-protein metabolism, not elsewhere classified; D64.9 Anemia, unspecified; R79.89 Other specified abnormal findings of blood chemistry
CPT/HCPCS: 36415; 80053; 82140; 84520; 85027; 86780; C9803; U0003; U0005